=== PATIENT | male | born 1950 | race Caucasian/White ===

== ENCOUNTER → 2019-08-23 | Outpatient (CLI) | payer MEDICARE, BC ==
--- NOTE | 2019-08-23 16:26 | XR ---
EXAMINATION TYPE: XR chest 2V DATE OF EXAM: 08/23/2019 COMPARISON: 05/30/2013 INDICATION: R05 TECHNIQUE: Frontal and lateral views of the chest are obtained. FINDINGS: The heart size is normal. The pulmonary vasculature is normal. The lungs are clear. IMPRESSION: 1. No acute pulmonary process.
== END | disposition home or self-care (01) ==
LOC: RADXRMAIN 14:02
PROVIDERS: ATTEND Family Medicine
DX: R07.9 Chest pain, unspecified (principal); R05 Cough
CPT/HCPCS: 71046

== ENCOUNTER 2019-08-31 14:12 | Observation (INO) | payer MEDICARE, BC ==
[2019-08-31 14:21] VITALS: RESP 16
[2019-08-31] MEDS ORDERED: ASPIRIN 81 MG PO STA (14:31)
[2019-08-31 14:44] LABS: Basophils # (A) 0.1 k/uL (0-0.2); Basophils % (A) 1 %; Eosinophils # (A) 0.2 k/uL (0-0.7); Eosinophils % (A) 2 %; HCT 47.1 % (39.0-53.0); HGB 15.6 gm/dL (13.0-17.5); Lymphocytes # (A) 2.1 k/uL (1.0-4.8); Lymphocytes % (A) 17 %; MCH 32.1 pg (25.0-35.0); MCV 97.3 fL (80.0-100.0); Mean Platelet Volume 7.3; Monocytes # (A) 0.7 k/uL (0-1.0); Monocytes % (A) 5 %; Neutrophils % (A) 73 %; Platelet Count 283 k/uL (150-450); RBC 4.84 m/uL (4.30-5.90); RDW 13.4 % (11.5-15.5); WBC 12.2 k/uL (3.8-10.6)
[2019-08-31] MEDS ORDERED: DILTIAZEM DRIP BOLUS FROM BAG 1 MG SOLN IV ONE (14:44)
[2019-08-31 14:52] LABS: Albumin 3.6 g/dL (3.5-5.0); Calcium 9.3 mg/dL (8.4-10.2); Potassium 4.7 mmol/L (3.5-5.1); Total Bilirubin 0.4 mg/dL (0.2-1.3); Total Protein 6.4 g/dL (6.3-8.2)
[2019-08-31 14:59] LABS: INR 0.9 (<1.2); Partial Thromboplastin Time 22.1 sec (22.0-30.0); Prothrombin Time 10.2 sec (9.0-12.0)
[2019-08-31] MEDS ORDERED: DILTIAZEM 125 MG in SODIUM CHLORIDE 0.9% 100 ML IV SCH (15:00)
--- NOTE | 2019-08-31 15:41 | XR ---
EXAMINATION TYPE: XR chest 2V DATE OF EXAM: 08/31/2019 COMPARISON: 08/23/2019 HISTORY: Chest pain TECHNIQUE: Frontal and lateral views of the chest are obtained. FINDINGS: There is no focal air space opacity, pleural effusion, or pneumothorax seen. Flattening of the diaphragms and pulmonary hyperinflation relates underlying COPD. Post CABG changes of the chest are noted. The cardiac silhouette size is within normal limits. The osseous structures are intact. Mild degenerative changes of the spine are seen. IMPRESSION: No acute cardiopulmonary process.
--- NOTE | 2019-08-31 15:55 | ED ---
Chest Pain HPI - General Chief Complaint: Chest Pain Stated Complaint: chest pain Time Seen by Provider: 08/31/19 14:18 Source: patient, EMS, RN notes reviewed Mode of arrival: EMS Limitations: no limitations - History of Present Illness Initial Comments: 69-year-old female presents emergency Department with chief complaint of chest pain, dizziness, weakness feeling. Patient states that this child do some activities today and states it does not feel right. Patient states he checked his pulse and noticed that it felt abnormal. Patient states that he did have a history of A. fib only after his triple bypass. Patient states this was 10 years ago. Patient has had some stress test recently but no recent cardiac cath. Patient states he feels slightly short of breath. Denies any nausea vomiting. Patient doesn't that his been recently placed on Medrol Dosepak. Patient states she's had slight URI symptoms. - Related Data Home Medications Medication Instructions Recorded Confirmed Atenolol [Tenormin] 25 mg PO DAILY 10/17/14 08/31/19 Omeprazole [PriLOSEC] 20 mg PO BID PRN 10/17/14 08/31/19 Simvastatin [Zocor] 40 mg PO DAILY 10/17/14 08/31/19 Ascorbic Acid [Vitamin C] 1,000 mg PO DAILY 08/31/19 08/31/19 Loratadine [Claritin] 10 mg PO DAILY 08/31/19 08/31/19 Multivitamins, Thera [Multivitamin 1 tab PO DAILY 08/31/19 08/31/19 (formulary)] Phenylephrine/Dm/Acetaminop/GG 30 ml PO Q4H PRN 08/31/19 08/31/19 [Vicks Dayquil Severe Cold-Flu] Phytonadione [Vitamin K] 5 mg PO DAILY 08/31/19 08/31/19 Thiamine [Vitamin B-1] 100 mg PO DAILY 08/31/19 08/31/19 methylPREDNISolone [Medrol Dose See Taper PO DAILY 08/31/19 08/31/19 Pack] Allergies Allergy/AdvReac Type Severity Reaction Status Date / Time No Known Allergies Allergy Verified 08/31/19 14:40 Review of Systems ROS Statement: Those systems with pertinent positive or pertinent negative responses have been documented in the HPI. ROS Other: All systems not noted in ROS Statement are negative. EKG Findings - EKG Comments: EKG Findings:: EKG performed at 14:24 A. fib with RVR rate of 118 QRS 96 QT/QTC 378/391 - EKG Results: EKG: interpreted by RAEANN Past Medical History Past Medical History: Coronary Artery Disease (CAD), Hyperlipidemia, Hypertension History of Any Multi-Drug Resistant Organisms: None Reported Past Surgical History: Heart Catheterization With Stent, Hernia Repair, Orthopedic Surgery Past Psychological History: No Psychological Hx Reported Smoking Status: Current every day smoker Past Alcohol Use History: Daily Past Drug Use History: None Reported General Exam Limitations: no limitations General appearance: alert, in no apparent distress Head exam: Present: atraumatic, normocephalic, normal inspection Neck exam: Present: normal inspection. Absent: tenderness, meningismus, ly mphadenopathy Respiratory exam: Present: normal lung sounds bilaterally. Absent: respiratory distress, wheezes, rales, rhonchi, stridor Cardiovascular Exam: Present: tachycardia, normal heart sounds. Absent: regular rate, normal rhythm, irregular rhythm, systolic murmur, diastolic murmur, rubs, gallop, clicks GI/Abdominal exam: Present: soft, normal bowel sounds. 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 Patient's A. fib RVR. Patient was given Cardizem bolus injured right. Patient has responded well. Patient remains in A. fib will be anticoagulated. Patient be admitted for cardiology evaluation. Critical Care Time Critical Care Time: Yes Total Critical Care Time: 35 Critical Care Time: Total 35 minutes of critical care time were used initially evaluated patient, discussed past medical history, review vitals, prior visits and discuss case with EMS. Patient had labs EKG chest x-ray ordered patient is in A. fib RVR placed on also 5 Cardizem drip 5. Patient is swallowing well with decrease in h is heart rate. Patient is asymptomatic. Patient will be admitted for cardiology evaluation. Disposition Clinical Impression: Atrial fibrillation with RVR Disposition: ADMITTED IP TO THIS HOSP Condition: Fair Referrals: Duong Sinha MD [Primary Care Provider] - 1-2 days
[2019-08-31] MEDS ORDERED: SODIUM CHLORIDE 0.9% 1,000 ML IV ONE ×2 (16:54→23:16)
[2019-08-31] MEDS ORDERED: HEPARIN SODIUM,PORCINE 5,000 UNIT/ML 1 ML VIAL IV ONE (16:58)
[2019-08-31] MEDS ORDERED: NITROGLYCERIN SL TABS 0.4 MG TAB SUBLINGUAL PRN (16:58)
[2019-08-31] MEDS ORDERED: HEPARIN SOD,PORK IN 0.45% NACL 25,000 UNIT in 0.45% NACL 1 250ML.BAG IV SCH (17:00)
[2019-08-31] MEDS ORDERED: PANTOPRAZOLE 40 MG TABLET PO PRN (20:07)
[2019-08-31] MEDS: ATORVASTATIN 20 MG TAB PO SCH (21:05)
[2019-08-31] MEDS: DEXTROSE 5%-0.45% NACL 1,000 ML IV SCH (21:05)
[2019-09-01 06:23] LABS: Mean Platelet Volume 6.9; Platelet Count 227 k/uL (150-450)
[2019-09-01 07:05] LABS: Cholesterol 110 mg/dL (<200); HDL Cholesterol 40 mg/dL (40-60); LDL Cholesterol,Calculated 60 mg/dL (0-99); Triglycerides 52 mg/dL (<150)
--- NOTE | 2019-09-01 07:34 | P.HPIM ---
History of Present Illness H&P Date: 09/01/19 Chief Complaint: Chest pain This is a history and physical an 69-year-old white male with known history of CAD. With recurrent atrial fibrillation with rapid ventricular response. The patient has now reverted. The patient supposedly had history of A. fib after stent repair about 10 years ago but has had no recurrence since. The patient states she was doing normal activities daily living and had new onset which did not resolve until he came to the hospital yesterday. The patient now is resting comfortably without any shortness of breath pain. No significant nausea, vomiting or diarrhea. No element of diaphoresis. There is element of bundle- branch block with bradycardia. Review of Systems Constitutional: Denies chills, Denies fever Eyes: denies blurred vision, denies pain Ears, nose, mouth and throat: Denies headache, Denies sore throat Cardiovascular: Reports chest pain, Reports decreased exercise tolerance, Reports palpitations Respiratory: Denies cough Gastrointestinal: Denies abdominal pain, Denies diarrhea, Denies nausea, Denies vomiting Musculoskeletal: Denies myalgias Past Medical History Past Medical History: Coronary Artery Disease (CAD), Hyperlipidemia, Hypertension History of Any Multi-Drug Resistant Organisms: None Reported Past Surgical History: Heart Catheterization With Stent, Hernia Repair, Orthopedic Surgery Past Anesthesia/Blood Transfusion Reactions: No Reported Reaction Date of Last Stent Placement:: 2007 Past Psychological History: No Psychological Hx Reported Smoking Status: Current every day smoker Past Alcohol Use History: Daily Past Drug Use History: None Reported - Past Family History Mother Family Medical History: Dementia, GI Bleed Father Family Medical History: Cancer Additional Family Medical History / Comment(s): colon cancer Medications and Allergies Home Medications Medication Instructions Recorded Confirmed Type Atenolol [Tenormin] 25 mg PO DAILY 10/17/14 08/31/19 History Omeprazole [PriLOSEC] 20 mg PO BID PRN 10/17/14 08/31/19 History Simvastatin [Zocor] 40 mg PO DAILY 10/17/14 08/31/19 History Ascorbic Acid [Vitamin C] 1,000 mg PO DAILY 08/31/19 08/31/19 History Loratadine [Claritin] 10 mg PO DAILY 08/31/19 08/31/19 History Multivitamins, Thera [Multivitamin 1 tab PO DAILY 08/31/19 08/31/19 History (formulary)] Phenylephrine/Dm/Acetaminop/GG 30 ml PO Q4H PRN 08/31/19 08/31/19 History [Vicks Dayquil Severe Cold-Flu] Phytonadione [Vitamin K] 5 mg PO DAILY 08/31/19 08/31/19 History Thiamine [Vitamin B-1] 100 mg PO DAILY 08/31/19 08/31/19 History methylPREDNISolone [Medrol Dose See Taper PO DAILY 08/31/19 08/31/19 History Pack] Allergies Allergy/AdvReac Type Severity Reaction Status Date / Time No Known Allergies Allergy Verified 08/31/19 14:40 Physical Exam Vitals: Vital Signs Temp Pulse Pulse Pulse Resp BP BP 09/01/19 03:27 65 16 09/01/19 00:17 84/54 08/31/19 22:54 97.6 F 84 16 84/53 08/31/19 21:36 08/31/19 20:00 08/31/19 19:58 97.6 F 62 16 08/31/19 18:22 98.3 F 77 16 08/31/19 18:10 98.3 F 77 16 08/31/19 17:37 79 16 95/67 08/31/19 16:23 82 16 87/65 08/31/19 14:21 90 08/31/19 14:17 98.6 F 92 16 101/75 BP Pulse Ox 09/01/19 03:27 95/52 97 09/01/19 00:17 86/54 08/31/19 22:54 76/50 96 08/31/19 21:36 96 08/31/19 20:00 97 08/31/19 19:58 92/52 97 08/31/19 18:22 138/67 95 08/31/19 18:10 138/67 95 08/31/19 17:37 97 08/31/19 16:23 95 08/31/19 14:21 08/31/19 14:17 96 Intake and Output 08/31/19 09/01/19 09/01/19 22:59 06:59 14:59 Intake Total 29.500 132.741 Balance 29.500 132.741 Intake: Intake, IV Titration 29.500 132.741 Amount Diltiazem 125 mg In 29.500 Sodium Chloride 0.9% 100 ml @ 5 MG/HR 5 mls/hr IV .Q24H [facility] Rx#:[id number] Heparin Sod,Pork in 0.45% 132.741 NaCl 25,000 unit In 0.45 % NaCl 1 250ml.bag @ 12 UNITS/KG/HR 9.906 mls/hr IV .Q24H [facility] Rx#: [id number] Other: # Voids 1 Weight 85.6 kg - Constitutional General appearance: no acute distress - EENT Eyes: EOMI - Neck Neck: no lymphadenopathy - Respiratory Respiratory: bilateral: CTA - Cardiovascular Rhythm: regular Heart sounds: normal: S1, S2 Abnormal Heart Sounds: no S3 Gallop - Gastrointestinal General gastrointestinal: soft, no tenderness - Neurologic Neurologic: CNII-XII intact - Musculoskeletal Musculoskeletal: no generalized weakness - Psychiatric Psychiatric: A&O x's 3 Results CBC & Chem 7: 09/01/19 06:03 08/31/19 14:20 Labs: Abnormal Lab Results - Last 24 Hours (Table) 08/31/19 08/31/19 08/31/19 Range/Units 14:20 14:20 23:02 WBC 12.2 H (3.8-10.6) k/uL Neutrophils # 9.0 H (1.3-7.7) k/uL APTT 58.0 H (22.0-30.0) sec Chloride 110 H (98-107) mmol/L Carbon Dioxide 21 L (22-30) mmol/L BUN 29 H (9-20) mg/dL Creatinine 1.34 H (0.66-1.25) mg/dL Glucose 125 H (74-99) mg/dL 09/01/19 Range/Units 06:03 WBC (3.8-10.6) k/uL Neutrophils # (1.3-7.7) k/uL APTT 67.6 H (22.0-30.0) sec Chloride (98-107) mmol/L Carbon Dioxide (22-30) mmol/L BUN (9-20) mg/dL Creatinine (0.66-1.25) mg/dL Glucose (74-99) mg/dL Thrombosis Risk Factor Assmnt - Choose All That Apply Each Risk Factor Represents 2 Points: Age 61-74 years Thrombosis Risk Factor Assessment Total Risk Factor Score: 2 Thrombosis Risk Factor Assessment Level: Low Risk Assessment and Plan Assessment: Watch vital signs closely. Echocardiogram to be done if not done in the last 6 months. Thyroid studies again if not done. Await cardiology input for possible medication titration with anticoagulation decision. See orders otherwise Time with Patient: Greater than 30
[2019-09-01 08:13] VITALS: PULSE 72
[2019-09-01] MEDS ORDERED: LORATADINE 10 MG TAB PO SCH (09:00)
[2019-09-01] MEDS ORDERED: ASPIRIN 81 MG PO SCH (09:00)
[2019-09-01] MEDS ORDERED: ATENOLOL 25 MG TAB PO SCH (09:00)
[2019-09-01] MEDS ORDERED: ASPIRIN 325 MG TAB PO SCH (09:00)
[2019-09-01] MEDS ORDERED: APIXABAN 5 MG TAB PO SCH (09:00)
[2019-09-01] MEDS ORDERED: METOPROLOL TARTRATE 25 MG TAB PO SCH (09:00)
[2019-09-01] MEDS ORDERED: AZITHROMYCIN 500 MG TAB PO SCH (09:00)
[2019-09-01] MEDS: ATORVASTATIN 20 MG TAB PO SCH (09:10)
[2019-09-01 12:16] VITALS: BP 130/75; TEMP 97.8
--- NOTE | 2019-09-01 12:37 | ECHOF ---
Referral Reason:afib, chest pain MEASUREMENTS -------- HEIGHT: 182.9 cm WEIGHT: 85.3 kg BP: 95/52 IVSd: 1.4 cm (0.6 - 1.1) LVIDd: 3.2 cm (3.9 - 5.3) LVPWd: 1.5 cm (0.6 - 1.1) IVSs: 2.0 cm LVIDs: 2.0 cm LVPWs: 2.1 cm LAESV Index (A-L): 17.86 ml/m Ao Diam: 3.1 cm (2.0 - 3.7) AV Cusp: 2.0 cm (1.5 - 2.6) LA Diam: 3.5 cm (2.7 - 3.8) MV EXCURSION: 14.577 mm (> 18.000) MV EF SLOPE: 52 mm/s (70 - 150) EPSS: 0.5 cm MV E Teddy: 0.54 m/s MV DecT: 200 ms MV A Teddy: 0.71 m/s MV E/A Ratio: 0.76 RAP: 5.00 mmHg RVSP: 20.33 mmHg TAPSE: 22.21 mm FINDINGS -------- Sinus rhythm. This was a technically good study. The left ventricular size is normal. There is moderate concentric left ventricular hypertrophy. O verall left ventricular systolic function is normal with, an EF between 55 - 60 %. The diastolic fi lling pattern is normal for the age of the patient 7.41. The right ventricle is normal in size. The right ventricular wall thickness is normal measuring < 5 mm. The left atrial size is normal. Normal LA size by volume 22+/-6 ml/m2. The right atrial size is normal. Interatrial and interventricular septum intact. Aortic valve is trileaflet and is mildly thickened. The mitral valve is normal. The mitral valve leaflets are mildly thickened. Mild mitral regurgita tion is present. The tricuspid valve appears structurally normal. Mild tricuspid regurgitation present. Right vent ricular systolic pressure is normal at < 35 mmHg. There is no pulmonic regurgitation present. The aortic root size is normal. Normal inferior vena cava with normal inspiratory collapse consistent with estimated right atrial pre ssure of 5 mmHg. All pulmonary veins appear normal. The flow patterns, measured by Doppler, appear normal. There is no pericardial effusion. CONCLUSIONS -------- 1. Sinus rhythm. 2. This was a technically good study. 3. The left ventricular size is normal. 4. There is moderate concentric left ventricular hypertrophy. 5. Overall left ventricular systolic function is normal with, an EF between 55 - 60 %. 6. The diastolic filling pattern is normal for the age of the patient 7.41 7. The right ventricle is normal in size. 8. The right ventricular wall thickness is normal measuring < 5mm. 9. The left atrial size is normal. 10. Normal LA size by volume 22+/-6 ml/m2. 11. The right atrial size is normal. 12. Interatrial and interventricular septum intact. 13. Aortic valve is trileaflet and is mildly thickened. 14. The mitral valve is normal. 15. The mitral valve leaflets are mildly thickened. 16. Mild mitral regurgitation is present. 17. The tricuspid valve appears structurally normal. 18. Mild tricuspid regurgitation present. 19. Right ventricular systolic pressure is normal at < 35 mmHg. 20. There is no pulmonic regurgitation present. 21. The aortic root size is normal. 22. Normal inferior vena cava with normal inspiratory collapse consistent with estimated right atrial pressure of 5 mmHg. 23. All pulmonary veins appear normal. 24. The flow patterns, measured by Doppler, appear normal. 25. There is no pericardial effusion. SPOUT TENDER: Gabbi Gerard RDCS
--- NOTE | 2019-09-01 13:07 | CONS ---
CONSULTATION This is a 69-year-old gentleman with a known history of CAD, hypertension, hyperlipidemia, alcoholism and smoking. This gentleman underwent aortocoronary bypass surgery and also prior to that PCI. He has been having an upper respiratory tract infection and complained of some wheezy feeling and he went and took some DayQuil tablets and syrup which has phenylephrine in it. However, he started having episodes of what he described as a rapid heartbeat, but no actual syncope, but he did feel a bit lightheaded. He also had some shortness of breath, felt his pulse was abnormal and came into the hospital. He was found to be in atrial fibrillation. He did have a brief episode following his bypass surgery more than 8 to 9 years ago. However after initiation of Cardizem, he converted to sinus rhythm. He is feeling well. He had a recent stress test within the last one year that was negative. I see this patient in the office regularly. He is therefore back in sinus rhythm, resting comfortably, denies any chest pain. Interestingly, he takes atenolol and simvastatin, but he has also been taking vitamin K for reasons that are quite unclear to me. I have advised the patient to not take any supplements, specifically vitamin K or vitamin E and I have suggested that he should take metoprolol tartrate 25 mg in the morning, 12.5 mg in the evening, I gave him Eliquis 5 mg [address] and will place him on Lipitor 20 mg daily. He is in sinus rhythm. I have advised him to avoid phenylephrine containing products because of the stimulation. Given his risk factors and age, I am recommending he should be on anticoagulation. At the time of my evaluation, he is asymptomatic and feels well. PAST MEDICAL HISTORY: 1. CAD with prior PCI and bypass surgery more than 8 to 9 years ago. 2. Hypertension. 3. Hyperlipidemia. The patient is a smoker, 1 to 2 packs a day and also drinks alcohol regularly including binge drinking. He is status post some orthopedic surgery and hernia surgery. ALLERGIES: None. MEDICATIONS: Medications include vitamin K 5 mg daily, DayQuil, vitamin B1, Medrol Dosepak given by his doctor for wheezing, Tenormin 25 mg daily, simvastatin 40 mg daily, vitamin C and Claritin. PHYSICAL EXAMINATION: On examination, blood pressure is 130/70, pulse rate is 60 per minute, regular. HEENT: Unremarkable. Fundus was not examined by me. Neck is supple. No JVD. I do not hear a carotid bruit. Heart exam reveals S1, S2 with a short systolic murmur. Lungs reveal bilateral scattered rhonchi. Abdomen is soft, nontender. Lower extremities reveal normal pulses. No edema. Central nervous system is normal. EKG revealed atrial fib with moderate ventricular rate, nonspecific ST-T changes. IMPRESSION: 1. Paroxysmal atrial fibrillation. 2. Upper respiratory tract infection. 3. Coronary artery disease with prior bypass surgery. 4. Hypertension. 5. Hyperlipidemia. RECOMMENDATION: I am recommending alcohol cessation and to quit smoking. I will initiate him on Lopressor 25 mg in the morning, 12.5 mg in the evening, discontinue atenolol, Lipitor 20 mg daily. He is advised he will be on Eliquis 5 mg b.i.d. Chest x-ray does not reveal any infiltrate. He probably has a bronchitis. We will therefore try Zithromax 500 mg daily. Patient can be discharged later on today. Thank you very much for the consult. MMODL / IJN: [id number] /
--- NOTE | 2019-09-01 15:07 | P.DS ---
Providers Date of admission: 08/31/19 17:17 Attending physician: Duong Sinha Consults: 08/31/19 16:58 Consult Physician Urgent Consulting Provider: Robert Mcmanus Consult Reason/Comments: AFIB RVR Do you want consulting provider notified?: Yes Primary care physician: Duong Sinha Hospital Course: This is discharge home in a 69-year-old white male Center admitted for recurrent atrial fibrillation. The patient stabilized after being given Cardizem. Evaluation by the magnetic locater has been done. The patient will go home on metoprolol 25 g daily with Eliquis and baby aspirin. The patient is not tolerating medication blood pressure was a little bit low during this hospitalization but is now been stabilized with IV fluid. The patient is chest pain-free tolerating diet and voiding without difficulty. The patient will follow up with me in about 1 week. Patient Condition at Discharge: Fair Plan - Discharge Summary Discharge Rx Participant: No New Discharge Prescriptions: New Aspirin 81 mg PO DAILY chew Apixaban [Eliquis] 5 mg PO BID #30 tab Metoprolol Tartrate [Lopressor] 25 mg PO DAILY #30 tab Nitroglycerin Sl Tabs [Nitrostat] 0.4 mg SUBLINGUAL Q5M PRN #50 tab PRN Reason: Chest Pain Azithromycin [Zithromax] 500 mg PO DAILY #3 tab Continue Omeprazole [PriLOSEC] 20 mg PO BID PRN PRN Reason: GERD Simvastatin [Zocor] 40 mg PO DAILY Atenolol [Tenormin] 25 mg PO DAILY Thiamine [Vitamin B-1] 100 mg PO DAILY Phytonadione [Vitamin K] 5 mg PO DAILY Multivitamins, Thera [Multivitamin (formulary)] 1 tab PO DAILY Loratadine [Claritin] 10 mg PO DAILY Ascorbic Acid [Vitamin C] 1,000 mg PO DAILY methylPREDNISolone [Medrol Dose Pack] See Taper PO DAILY Phenylephrine/Dm/Acetaminop/GG [Vicks Dayquil Severe Cold-Flu] 30 ml PO Q4H PRN PRN Reason: Pain Or Fever > 100.5 Discharge Medication List Atenolol [Tenormin] 25 mg PO DAILY 10/17/14 [History] Omeprazole [PriLOSEC] 20 mg PO BID PRN 10/17/14 [History] Simvastatin [Zocor] 40 mg PO DAILY 11/25/14 [History] Ascorbic Acid [Vitamin C] 1,000 mg PO DAILY 08/31/19 [History] Loratadine [Claritin] 10 mg PO DAILY 08/31/19 [History] Multivitamins, Thera [Multivitamin (formulary)] 1 tab PO DAILY 08/31/19 [History] Phenylephrine/Dm/Acetaminop/GG [Vicks Dayquil Severe Cold-Flu] 30 ml PO Q4H PRN 08/31/19 [History] Phytonadione [Vitamin K] 5 mg PO DAILY 08/31/19 [History] Thiamine [Vitamin B-1] 100 mg PO DAILY 08/31/19 [History] methylPREDNISolone [Medrol Dose Pack] See Taper PO DAILY 08/31/19 [History] Apixaban [Eliquis] 5 mg PO BID #30 tab 09/01/19 [Rx] Aspirin 81 mg PO DAILY chew 09/01/19 [Rx] Azithromycin [Zithromax] 500 mg PO DAILY #3 tab 09/01/19 [Rx] Metoprolol Tartrate [Lopressor] 25 mg PO DAILY #30 tab 09/01/19 [Rx] Nitroglycerin Sl Tabs [Nitrostat] 0.4 mg SUBLINGUAL Q5M PRN #50 tab 09/01/19 [Rx] Follow up Appointment(s)/Referral(s): Duong Sinha MD [Primary Care Provider] - 09/06/19 11:00 am (Thursday) Activity/Diet/Wound Care/Special Instructions: Pts 30 day copay for Eliquis is $40. script for 3 month supply is in [facility] Discharge Disposition: HOME SELF-CARE
[2019-09-01] MEDS: DEXTROSE 5%-0.45% NACL 1,000 ML IV SCH (15:32)
[2019-09-01] MEDS ORDERED: METOPROLOL TARTRATE 12.5 MG TAB PO SCH (21:00)
== END 2019-09-01 16:11 | disposition home or self-care (01) ==
LOC: EC 14:12 → 3SCARD 17:17
PROVIDERS: ADMIT Family Medicine; ATTEND Family Medicine
DX: I48.0 Paroxysmal atrial fibrillation (principal); I25.10 Atherosclerotic heart disease of native coronary artery without angina pectoris; J06.9 Acute upper respiratory infection, unspecified; I45.4 Nonspecific intraventricular block; R00.1 Bradycardia, unspecified; E78.5 Hyperlipidemia, unspecified; I10 Essential (primary) hypertension; F17.210 Nicotine dependence, cigarettes, uncomplicated; F10.21 Alcohol dependence, in remission; Z79.899 Other long term (current) drug therapy; Z79.52 Long term (current) use of systemic steroids; Z95.5 Presence of coronary angioplasty implant and graft; Z95.1 Presence of aortocoronary bypass graft; Z80.0 Family history of malignant neoplasm of digestive organs; Z81.8 Family history of other mental and behavioral disorders; Z83.79 Family history of other diseases of the digestive system
CPT/HCPCS: 96366 ×3; 93005 ×2; 96376; 96368; 96365; 99291; 36415; 93306; 83880; 80061; 80053; 84443; 83690; 83735; 84484 ×2; 85025; 85049; 85610; 85730 ×2; 71046; G0378 ×2; J1644 ×2

== ENCOUNTER 2019-11-23 08:39 | Emergency (ER) | payer MEDICARE, BC, OTHER ==
[2019-11-23 08:43] VITALS: RESP 18
--- NOTE | 2019-11-23 09:18 | ED ---
Arrhythmia/Palpitations HPI - General Chief Complaint: Arrhythmia/Palpitations Stated Complaint: a-fIB Time Seen by Provider: 11/23/19 08:51 Source: patient, RN notes reviewed, old records reviewed Mode of arrival: ambulatory Limitations: no limitations - History of Present Illness Initial Comments: This is a 69-year-old male here for evaluation of rapid heart rate lightheadedness and dizziness. No significant chest pain history of atrial fibrillation history of cardiac bypass. Patient states first time in its A. fib was when he has bypass surgery and recently a few months ago. Patient currently does take blood thinners he is on Alquist, patient also takes metoprolol for his heart rate. No recent nausea vomiting diarrhea illness medication. Patient's history of alcohol abuse. At this time patient states his symptoms resolved he feels normal feels good MD Complaint: rapid heart beat, "heart racing", "skipped beats", palpitations, irregular heart beat, atrial fibrillation -: days(s) Context: occurred during rest Arrhythmia History: atrial fibrillation Associated Symptoms: anxiety - Related Data Home Medications Medication Instructions Recorded Confirmed Omeprazole [PriLOSEC] 20 mg PO BID PRN 10/17/14 08/31/19 Simvastatin [Zocor] 40 mg PO DAILY 10/17/14 08/31/19 Ascorbic Acid [Vitamin C] 1,000 mg PO DAILY 08/31/19 08/31/19 Loratadine [Claritin] 10 mg PO DAILY 08/31/19 08/31/19 Multivitamins, Thera [Multivitamin 1 tab PO DAILY 08/31/19 08/31/19 (formulary)] Phenylephrine/Dm/Acetaminop/GG 30 ml PO Q4H PRN 08/31/19 08/31/19 [Vicks Dayquil Severe Cold-Flu] Phytonadione [Vitamin K] 5 mg PO DAILY 08/31/19 08/31/19 Thiamine [Vitamin B-1] 100 mg PO DAILY 08/31/19 08/31/19 methylPREDNISolone [Medrol Dose See Taper PO DAILY 08/31/19 08/31/19 Pack] Previous Rx's Medication Instructions Recorded Apixaban [Eliquis] 5 mg PO BID #30 tab 09/01/19 Aspirin 81 mg PO DAILY chew 09/01/19 Azithromycin [Zithromax] 500 mg PO DAILY #3 tab 09/01/19 Metoprolol Tartrate [Lopressor] 25 mg PO DAILY #30 tab 09/01/19 Nitroglycerin Sl Tabs [Nitrostat] 0.4 mg SUBLINGUAL Q5M PRN #50 tab 09/01/19 Allergies Allergy/AdvReac Type Severity Reaction Status Date / Time No Known Allergies Allergy Verified 11/23/19 08:43 Review of Systems ROS Statement: Those systems with pertinent positive or pertinent negative responses have been documented in the HPI. ROS Other: All systems not noted in ROS Statement are negative. Past Medical History Past Medical History: Atrial Fibrillation, Coronary Artery Disease (CAD), Hyperlipidemia, Hypertension History of Any Multi-Drug Resistant Organisms: None Reported Past Surgical History: Heart Catheterization With Stent, Hernia Repair, Orthopedic Surgery Past Anesthesia/Blood Transfusion Reactions: No Reported Reaction Date of Last Stent Placement:: 2007 Past Psychological History: No Psychological Hx Reported Smoking Status: Current every day smoker Past Alcohol Use History: Daily Past Drug Use History: None Reported - Past Family History Mother Family Medical History: Dementia, GI Bleed Father Family Medical History: Cancer Additional Family Medical History / Comment(s): colon cancer General Exam Limitations: no limitations General appearance: alert, in no apparent distress Head exam: Present: atraumatic, normocephalic, normal inspection Eye exam: Present: normal appearance, PERRL, EOMI. Absent: scleral icterus, conjunctival injection, periorbital swelling ENT exam: Present: normal exam, mucous membranes moist Neck exam: Present: normal inspection. Absent: tenderness, meningismus, lymphadenopathy Respiratory exam: Present: normal lung sounds bilaterally. Absent: respiratory distress, wheezes, rales, rhonchi, stridor Cardiovascular Exam: Present: regular rate, normal rhythm, normal heart sounds. Absent: systolic murmur, diastolic murmur, rubs, gallop, clicks GI/Abdominal exam: Present: soft, normal bowel sounds. Absent: distended, tenderness, guarding, rebound, rigid Extremities exam: Present: normal inspection, full ROM, normal capillary refill. Absent: tenderness, pedal edema, joint swelling, calf tenderness Back exam: Present: normal inspection Neurological exam: Present: alert, oriented X3, CN II-XII intact Psychiatric exam: Present: normal affect, normal mood Skin exam: Present: warm, dry, intact, normal color. 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 Patient states symptomatic here in the ER and will be discharged home Disposition Clinical Impression: Atrial fibrillation, Palpitations Disposition: HOME SELF-CARE Condition: Good Instructions (If sedation given, give patient instructions): Heart Palpitations (ED) Is patient prescribed a controlled substance at d/c from ED?: No Referrals: Duong Sinha MD [Primary Care Provider] - 1-2 days
[2019-11-23 09:38] LABS: Basophils % (A) 0 %; Eosinophils # (A) 0.2 k/uL (0-0.7); Eosinophils % (A) 2 %; HCT 44.7 % (39.0-53.0); HGB 14.6 gm/dL (13.0-17.5); Lymphocytes # (A) 1.4 k/uL (1.0-4.8); Lymphocytes % (A) 18 %; MCH 31.3 pg (25.0-35.0); MCHC 32.5 g/dL (31.0-37.0); MCV 96.2 fL (80.0-100.0); Mean Platelet Volume 9.2; Monocytes # (A) 0.5 k/uL (0-1.0); Monocytes % (A) 7 %; Neutrophils # (A) 5.6 k/uL (1.3-7.7); Neutrophils % (A) 71 %; Platelet Count 220 k/uL (150-450); RBC 4.65 m/uL (4.30-5.90); RDW 13.1 % (11.5-15.5); WBC 7.8 k/uL (3.8-10.6)
[2019-11-23 09:49] LABS: Albumin 3.8 g/dL (3.5-5.0); Calcium 9.4 mg/dL (8.4-10.2); Potassium 4.3 mmol/L (3.5-5.1); Total Bilirubin 0.5 mg/dL (0.2-1.3); Total Protein 6.7 g/dL (6.3-8.2)
[2019-11-23 11:02] VITALS: BP 121/86; PULSE 69; TEMP 98.2
== END 2019-11-23 10:58 | disposition home or self-care (01) ==
LOC: EC 08:39
DX: I48.91 Unspecified atrial fibrillation (principal); E78.5 Hyperlipidemia, unspecified; I10 Essential (primary) hypertension; I25.10 Atherosclerotic heart disease of native coronary artery without angina pectoris; F17.200 Nicotine dependence, unspecified, uncomplicated; Z79.899 Other long term (current) drug therapy; Z95.5 Presence of coronary angioplasty implant and graft
CPT/HCPCS: 36415; 80053; 83735; 84443; 84484; 85025; 93005; 99285

== ENCOUNTER → 2021-10-08 | Outpatient (CLI) | payer BC, MEDICARE, OTHER | END | disposition home or self-care (01) | LOC: LABWHC1 12:04 | PROVIDERS: ATTEND Family Medicine | DX: Z20.822 Contact with and (suspected) exposure to COVID-19 (principal); Z11.59 Encounter for screening for other viral diseases | CPT/HCPCS: U0003; C9803 ==

== ENCOUNTER 2022-02-21 20:15 | Emergency (ER) | payer MEDICARE ==
[2022-02-21 20:37] VITALS: RESP 16
[2022-02-21] MEDS ORDERED: METOPROLOL TARTRATE 5 MG/5 ML VIAL IVP STA (21:14)
--- NOTE | 2022-02-21 21:14 | ED ---
General Adult HPI - General Chief complaint: Arrhythmia/Palpitations Stated complaint: Palpitations,Jaw Pain Time Seen by Provider: 02/21/22 20:50 Source: patient Mode of arrival: wheelchair - History of Present Illness Initial comments: Dictation was produced using [employer] dictation software. please excuse any grammatical, word or spelling errors. Chief Complaint: 71-year-old male presents to the emergency department for palpitations History of Present Illness: 71-year-old male with past medical history atrial fibrillation as diagnosed in 2012. He is on anti-coagulation medications and beta blockers. Patient states she's been compliant with his medications. He has not had any changes habits recently. At around 7 PM he was having a Pepsi float when all of a sudden long-term through his dessert he started to feel palpitations. Patient has any chest pain. Since being in the emergency department he feels slightly improved but still has noticeable palpitations. Patient has any shortness of breath. The ROS documented in this emergency department record has been reviewed and confirmed by me. Those systems with pertinent positive or negative responses have been documented in the HPI. All other systems are other negative and/or noncontributory. PHYSICAL EXAM: General Impression: Alert and oriented x3, not in acute distress HEENT: Normocephalic atraumatic, extra-ocular movements intact, pupils equal and reactive to light bilaterally, mucous membranes moist. Cardiovascular: Irregularly irregular Chest: Able to complete full sentences, no retractions, no tachypnea Abdomen: abdomen soft, non-tender, non-distended, no organomegaly Musculoskeletal: Pulses present and equal in all extremities, no peripheral edema Motor: no focal deficits noted Neurological: CN II-XII grossly intact, no focal motor or sensory deficits noted Skin: Intact with no visualized rashes Psych: Normal affect and mood ED course: 71-year-old male presents to the emergency department for chief complaint palpitations that began acutely at 7 PM. He does have a history of A. fib and is on appropriate medications. States she's been compliant. Signs upon arrival are within acceptable limits. Patient's well-appearing at bedside. 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 Clinical presentation consistent with A. fib with RVR. Laboratory evaluation obtained. CBC, coag panel, metabolic panel was within acceptable limits. Troponin is negative. Patient given small 2.5 IV push dose of metoprolol. Patient's medications were reviewed. He takes metoprolol 50 mg in the morning and 25 mg at night. He took his morning dose but did not take his night dose. Patient's heart rate improved to acceptable levels between 80 and 110, with most of his heart rate being maintained in the 90s. Patient reevaluated at bedside at 10:00 PM. Patient ambulated the emergency department tolerated it well. He did become a little tachycardic immediately after the walk however with 1 minute of rest his heart rate went back down to acceptable levels in the 90s. Patient states he's feeling well. He lives nearby and can return to the emergency department for his recurrent symptoms. Patient agreeable discharge. He feels well. he feels improved he is instructed to go home and take his nightly metoprolol oral dose. EKG interpretation: Ventricular rate 131, H fibrillation with rapid ventricular weight, QS 90, QTC 368. No TX prolongation, no QTC prolongation, no ST or T-wave changes noted. - Related Data Home Medications Medication Instructions Recorded Confirmed Omeprazole [PriLOSEC] 20 mg PO BID PRN 10/17/14 02/21/22 Atorvastatin [Lipitor] 40 mg PO HS 02/21/22 02/21/22 Metoprolol Tartrate [Lopressor] 25 mg PO HS 02/21/22 02/21/22 Metoprolol Tartrate [Lopressor] 50 mg PO DAILY 02/21/22 02/21/22 Previous Rx's Medication Instructions Recorded Apixaban [Eliquis] 5 mg PO BID #30 tab 09/01/19 Nitroglycerin Sl Tabs [Nitrostat] 0.4 mg SUBLINGUAL Q5M PRN #50 tab 09/01/19 Allergies Allergy/AdvReac Type Severity Reaction Status Date / Time No Known Allergies Allergy Verified 02/21/22 21:55 Review of Systems ROS Statement: Those systems with pertinent positive or pertinent negative responses have been documented in the HPI. ROS Other: All systems not noted in ROS Statement are negative. Past Medical History Past Medical History: Atrial Fibrillation, Coronary Artery Disease (CAD), Hyperlipidemia, Hypertension History of Any Multi-Drug Resistant Organisms: None Reported Past Surgical History: Heart Catheterization With Stent, Hernia Repair, Orthopedic Surgery Past Anesthesia/Blood Transfusion Reactions: No Reported Reaction Date of Last Stent Placement:: 2007 Past Psychological History: No Psychological Hx Reported Past Alcohol Use History: Daily Past Drug Use History: None Reported - Past Family History Mother Family Medical History: Dementia, GI Bleed Father Family Medical History: Cancer Additional Family Medical History / Comment(s): colon cancer Course Vital Signs 02/21/22 02/21/22 20:34 21:30 Temperature 97.6 F Pulse Rate 87 Pulse Rate [ 117 H Haz Tech ] Respiratory 16 Rate Blood Pressure 102/67 O2 Sat by Pulse 99 Oximetry Medical Decision Making - Lab Data Result diagrams: 02/21/22 20:55 02/21/22 20:55 Lab Results 02/21/22 02/21/22 02/21/22 Range/Units 20:55 20:55 20:55 WBC 9.9 (3.8-10.6) k/uL RBC 5.05 (4.30-5.90) m/uL Hgb 16.4 (13.0-17.5) gm/dL Hct 49.6 (39.0-53.0) % MCV 98.2 (80.0-100.0) fL MCH 32.5 (25.0-35.0) pg MCHC 33.0 (31.0-37.0) g/dL RDW 14.0 (11.5-15.5) % Plt Count 274 (150-450) k/uL MPV 9.5 Neutrophils % 64 % Lymphocytes % 25 % Monocytes % 6 % Eosinophils % 3 % Basophils % 1 % Neutrophils # 6.3 (1.3-7.7) k/uL Lymphocytes # 2.4 (1.0-4.8) k/uL Monocytes # 0.6 (0-1.0) k/uL Eosinophils # 0.3 (0-0.7) k/uL Basophils # 0.1 (0-0.2) k/uL PT 10.1 (9.0-12.0) sec INR 0.9 (<1.2) APTT 25.2 (22.0-30.0) sec Sodium 137 (137-145) mmol/L Potassium 4.1 (3.5-5.1) mmol/L Chloride 108 H (98-107) mmol/L Carbon Dioxide 20 L (22-30) mmol/L Anion Gap 9 mmol/L BUN 22 H (9-20) mg/dL Creatinine 1.28 H (0.66-1.25) mg/dL Est GFR (CKD-EPI)AfAm 65 (>60 ml/min/1.73 sqM) Est GFR (CKD-EPI)NonAf 56 (>60 ml/min/1.73 sqM) Glucose 160 H (74-99) mg/dL Calcium 8.9 (8.4-10.2) mg/dL Magnesium 1.9 (1.6-2.3) mg/dL Total Bilirubin 0.4 (0.2-1.3) mg/dL AST 25 (17-59) U/L ALT 22 (4-49) U/L Alkaline Phosphatase 107 (38-126) U/L Troponin I (0.000-0.034) ng/mL Total Protein 7.0 (6.3-8.2) g/dL Albumin 3.9 (3.5-5.0) g/dL 02/21/22 Range/Units 20:55 WBC (3.8-10.6) k/uL RBC (4.30-5.90) m/uL Hgb (13.0-17.5) gm/dL Hct (39.0-53.0) % MCV (80.0-100.0) fL MCH (25.0-35.0) pg MCHC (31.0-37.0) g/dL RDW (11.5-15.5) % Plt Count (150-450) k/uL MPV Neutrophils % % Lymphocytes % % Monocytes % % Eosinophils % % Basophils % % Neutrophils # (1.3-7.7) k/uL Lymphocytes # (1.0-4.8) k/uL Monocytes # (0-1.0) k/uL Eosinophils # (0-0.7) k/uL Basophils # (0-0.2) k/uL PT (9.0-12.0) sec INR (<1.2) APTT (22.0-30.0) sec Sodium (137-145) mmol/L Potassium (3.5-5.1) mmol/L Chloride (98-107) mmol/L Carbon Dioxide (22-30) mmol/L Anion Gap mmol/L BUN (9-20) mg/dL Creatinine (0.66-1.25) mg/dL Est GFR (CKD-EPI)AfAm (>60 ml/min/1.73 sqM) Est GFR (CKD-EPI)NonAf (>60 ml/min/1.73 sqM) Glucose (74-99) mg/dL Calcium (8.4-10.2) mg/dL Magnesium (1.6-2.3) mg/dL Total Bilirubin (0.2-1.3) mg/dL AST (17-59) U/L ALT (4-49) U/L Alkaline Phosphatase (38-126) U/L Troponin I <0.012 (0.000-0.034) ng/mL Total Protein (6.3-8.2) g/dL Albumin (3.5-5.0) g/dL Disposition Clinical Impression: Atrial fibrillation Disposition: HOME SELF-CARE Condition: Fair Instructions (If sedation given, give patient instructions): Heart Palpitations (ED) Is patient prescribed a controlled substance at d/c from ED?: No Referrals: Duong Sinha MD [Primary Care Provider] - 1-2 days
[2022-02-21 21:20] LABS: Basophils # (A) 0.1 k/uL (0-0.2); Basophils % (A) 1 %; Eosinophils # (A) 0.3 k/uL (0-0.7); Eosinophils % (A) 3 %; HCT 49.6 % (39.0-53.0); HGB 16.4 gm/dL (13.0-17.5); Lymphocytes # (A) 2.4 k/uL (1.0-4.8); Lymphocytes % (A) 25 %; MCH 32.5 pg (25.0-35.0); MCV 98.2 fL (80.0-100.0); Mean Platelet Volume 9.5; Monocytes # (A) 0.6 k/uL (0-1.0); Monocytes % (A) 6 %; Neutrophils # (A) 6.3 k/uL (1.3-7.7); Neutrophils % (A) 64 %; Platelet Count 274 k/uL (150-450); RBC 5.05 m/uL (4.30-5.90); WBC 9.9 k/uL (3.8-10.6)
[2022-02-21 21:21] LABS: Albumin 3.9 g/dL (3.5-5.0); Calcium 8.9 mg/dL (8.4-10.2); Potassium 4.1 mmol/L (3.5-5.1); Total Bilirubin 0.4 mg/dL (0.2-1.3)
[2022-02-21 21:22] LABS: Magnesium 1.9 mg/dL (1.6-2.3)
[2022-02-21 21:27] LABS: INR 0.9 (<1.2); Partial Thromboplastin Time 25.2 sec (22.0-30.0); Prothrombin Time 10.1 sec (9.0-12.0)
[2022-02-21] MEDS ORDERED: SODIUM CHLORIDE 0.9% 1,000 ML IV STA (21:36)
--- NOTE | 2022-02-21 21:56 | XR ---
EXAMINATION TYPE: XR chest 2V DATE OF EXAM: 02/21/2022 COMPARISON: 08/31/2019 HISTORY: Chest pain. Dysrhythmia TECHNIQUE: FINDINGS: Heart is normal. Lungs are clear. Diaphragm is normal. There are chest leads. Bony thorax i s intact. IMPRESSION: No active cardiopulmonary disease. Normal heart. No change.
[2022-02-21 23:16] VITALS: BP 94/70
[2022-02-21 23:18] VITALS: PULSE 102; TEMP 97.9
== END 2022-02-21 23:16 | disposition home or self-care (01) ==
LOC: EC 20:15
DX: I48.91 Unspecified atrial fibrillation (principal); I25.10 Atherosclerotic heart disease of native coronary artery without angina pectoris; E78.5 Hyperlipidemia, unspecified; I10 Essential (primary) hypertension; Z79.01 Long term (current) use of anticoagulants
CPT/HCPCS: 36415; 71046; 80053; 83735; 84484; 85025; 85610; 85730; 93005; 96361; 96374; 99285

== ENCOUNTER 2022-04-13 00:53 | Emergency (ER) | payer MEDICARE ==
[2022-04-13 01:03] VITALS: TEMP 97.6
[2022-04-13] MEDS ORDERED: SODIUM CHLORIDE 0.9% 500 ML 500 ML IV STA (01:13)
--- NOTE | 2022-04-13 01:13 | ED ---
Arrhythmia/Palpitations HPI - General Chief Complaint: Arrhythmia/Palpitations Stated Complaint: AFib Time Seen by Provider: 04/13/22 01:12 Source: patient, RN notes reviewed, old records reviewed Mode of arrival: ambulatory Limitations: no limitations - History of Present Illness Initial Comments: This is a 71-year-old male presents today for evaluation of a fibrillation states he's in atrial fibrillation and feels like he has. Very concerned. Maryellen ent has no travel history no sick contacts no recent medication changes. Patient currently is without pain. She also has high blood pressure high cholesterol MD Complaint: rapid heart beat, "heart racing", palpitations, atrial fibrillation -: unknown Context: occurred during rest Arrhythmia History: atrial fibrillation Associated Symptoms: denies other symptoms Treatments Prior to Arrival: other (none) - Related Data Home Medications Medication Instructions Recorded Confirmed Omeprazole [PriLOSEC] 20 mg PO BID PRN 10/17/14 02/21/22 Atorvastatin [Lipitor] 40 mg PO HS 02/21/22 02/21/22 Metoprolol Tartrate [Lopressor] 25 mg PO HS 02/21/22 02/21/22 Metoprolol Tartrate [Lopressor] 50 mg PO DAILY 02/21/22 02/21/22 Previous Rx's Medication Instructions Recorded Apixaban [Eliquis] 5 mg PO BID #30 tab 09/01/19 Nitroglycerin Sl Tabs [Nitrostat] 0.4 mg SUBLINGUAL Q5M PRN #50 tab 09/01/19 Allergies Allergy/AdvReac Type Severity Reaction Status Date / Time No Known Allergies Allergy Verified 04/13/22 01:03 Review of Systems ROS Statement: Those systems with pertinent positive or pertinent negative responses have been documented in the HPI. ROS Other: All systems not noted in ROS Statement are negative. Past Medical History Past Medical History: Atrial Fibrillation, Coronary Artery Disease (CAD), Hyperlipidemia, Hypertension History of Any Multi-Drug Resistant Organisms: None Reported Past Surgical History: Heart Catheterization With Stent, Hernia Repair, Orthop edic Surgery Past Anesthesia/Blood Transfusion Reactions: No Reported Reaction Date of Last Stent Placement:: 2007 Past Psychological History: No Psychological Hx Reported Smoking Status: Current every day smoker Past Alcohol Use History: Daily Past Drug Use History: None Reported - Past Family History Mother Family Medical History: Dementia, GI Bleed Father Family Medical History: Cancer Additional Family Medical History / Comment(s): colon cancer General Exam Limitations: no limitations General appearance: alert, in no apparent distress, anxious Head exam: Present: atraumatic, normocephalic, normal inspection Eye exam: Present: normal appearance, PERRL, EOMI. Absent: scleral icterus, conjunctival injection, periorbital swelling ENT exam: Present: normal exam, mucous membranes moist Neck exam: Present: normal inspection. Absent: tenderness, meningismus, lymp hadenopathy Respiratory exam: Present: normal lung sounds bilaterally. Absent: respiratory distress, wheezes, rales, rhonchi, stridor Cardiovascular Exam: Present: regular rate, normal rhythm, normal heart sounds. Absent: systolic murmur, diastolic murmur, rubs, gallop, clicks GI/Abdominal exam: Present: soft, normal bowel sounds. Absent: distended, tenderness, guarding, rebound, rigid Extremities exam: Present: normal inspection, full ROM, normal capillary refill. Absent: tenderness, pedal edema, joint swelling, calf tenderness Back exam: Present: normal inspection Neurological exam: Present: alert, oriented X3, CN II-XII intact Psychiatric exam: Present: normal affect, normal mood Skin exam: Present: warm, dry, intact, normal color. Absent: rash Course Vital Signs 04/13/22 04/13/22 04/13/22 01:00 02:13 02:26 Temperature 97.6 F Pulse Rate 67 78 81 Respiratory 18 18 18 Rate Blood Pressure 102/63 121/80 121/80 O2 Sat by Pulse 100 98 95 Oximetry - Reevaluation(s) Reevaluation #1: 04/13/22 Medical record is reviewed Patient is significantly improved here in the emergency department Patient is not in atrial fibrillation at all throughout entire ER stay Patient informed results and questions answered EKG Findings - EKG Comments: EKG Findings:: EKG is atrial fib 97 QRS 118 QTC 349 - EKG Results: EKG: interpreted by OSMIN CARY (EKG shows sinus rhythm 84 NV 172 QRS 93 QTC 391) Medical Decision Making - Medical Decision Making 71 male to the ER for evaluation. Patient presents to the ER today for evalua tion regards to what he believes a fibrillation patient is in normal sinus rhythm and can be discharged home - Lab Data Result diagrams: 04/13/22 03:14 04/13/22 03:14 Lab Results 04/13/22 04/13/22 04/13/22 Range/Units 03:14 03:14 03:14 WBC 9.6 (3.8-10.6) k/uL RBC 4.63 (4.30-5.90) m/uL Hgb 14.4 (13.0-17.5) gm/dL Hct 45.1 (39.0-53.0) % MCV 97.4 (80.0-100.0) fL MCH 31.1 (25.0-35.0) pg MCHC 31.9 (31.0-37.0) g/dL RDW 13.1 (11.5-15.5) % Plt Count 225 (150-450) k/uL MPV 10.1 Neutrophils % 60 % Lymphocytes % 25 % Monocytes % 9 % Eosinophils % 3 % Basophils % 1 % Neutrophils # 5.7 (1.3-7.7) k/uL Lymphocytes # 2.4 (1.0-4.8) k/uL Monocytes # 0.9 (0-1.0) k/uL Eosinophils # 0.3 (0-0.7) k/uL Basophils # 0.1 (0-0.2) k/uL PT 10.4 (9.0-12.0) sec INR 1.0 (<1.2) APTT 25.2 (22.0-30.0) sec Sodium 137 (137-145) mmol/L Potassium 4.7 (3.5-5.1) mmol/L Chloride 109 H (98-107) mmol/L Carbon Dioxide 19 L (22-30) mmol/L Anion Gap 9 mmol/L BUN 19 (9-20) mg/dL Creatinine 1.13 (0.66-1.25) mg/dL Est GFR (CKD-EPI)AfAm 76 (>60 ml/min/1.73 sqM) Est GFR (CKD-EPI)NonAf 65 (>60 ml/min/1.73 sqM) Glucose 79 (74-99) mg/dL Calcium 8.9 (8.4-10.2) mg/dL Phosphorus 4.2 (2.5-4.5) mg/dL Magnesium 2.0 (1.6-2.3) mg/dL Total Bilirubin 0.3 (0.2-1.3) mg/dL AST 31 (17-59) U/L ALT 21 (4-49) U/L Alkaline Phosphatase 100 (38-126) U/L Troponin I (0.000-0.034) ng/mL NT-Pro-B Natriuret Pep pg/mL Total Protein 6.8 (6.3-8.2) g/dL Albumin 4.0 (3.5-5.0) g/dL TSH 6.040 H (0.465-4.680) mIU/L 04/13/22 04/13/22 Range/Units 03:14 03:14 WBC (3.8-10.6) k/uL RBC (4.30-5.90) m/uL Hgb (13.0-17.5) gm/dL Hct (39.0-53.0) % MCV (80.0-100.0) fL MCH (25.0-35.0) pg MCHC (31.0-37.0) g/dL RDW (11.5-15.5) % Plt Count (150-450) k/uL MPV Neutrophils % % Lymphocytes % % Monocytes % % Eosinophils % % Basophils % % Neutrophils # (1.3-7.7) k/uL Lymphocytes # (1.0-4.8) k/uL Monocytes # (0-1.0) k/uL Eosinophils # (0-0.7) k/uL Basophils # (0-0.2) k/uL PT (9.0-12.0) sec INR (<1.2) APTT (22.0-30.0) sec Sodium (137-145) mmol/L Potassium (3.5-5.1) mmol/L Chloride (98-107) mmol/L Carbon Dioxide (22-30) mmol/L Anion Gap mmol/L BUN (9-20) mg/dL Creatinine (0.66-1.25) mg/dL Est GFR (CKD-EPI)AfAm (>60 ml/min/1.73 sqM) Est GFR (CKD-EPI)NonAf (>60 ml/min/1.73 sqM) Glucose (74-99) mg/dL Calcium (8.4-10.2) mg/dL Phosphorus (2.5-4.5) mg/dL Magnesium (1.6-2.3) mg/dL Total Bilirubin (0.2-1.3) mg/dL AST (17-59) U/L ALT (4-49) U/L Alkaline Phosphatase (38-126) U/L Troponin I <0.012 (0.000-0.034) ng/mL NT-Pro-B Natriuret Pep 296 pg/mL Total Protein (6.3-8.2) g/dL Albumin (3.5-5.0) g/dL TSH (0.465-4.680) mIU/L Disposition Clinical Impression: Atrial fibrillation with RVR, Normal sinus rhythm Disposition: HOME SELF-CARE Condition: Good Instructions (If sedation given, give patient instructions): A-fib (Atrial Fibrillation) (ED) Is patient prescribed a controlled substance at d/c from ED?: No Referrals: Duong Sinha MD [Primary Care Provider] - 1-2 days
[2022-04-13] MEDS ORDERED: METOPROLOL TARTRATE 5 MG/5 ML VIAL IVP STA (01:39)
[2022-04-13] MEDS ORDERED: DILTIAZEM DRIP BOLUS FROM BAG 1 MG SOLN IV ONE (01:39)
[2022-04-13] MEDS ORDERED: DILTIAZEM 125 MG in SODIUM CHLORIDE 0.9% 100 ML IV SCH (01:45)
[2022-04-13 02:27] VITALS: BP 121/80; PULSE 81; RESP 18
[2022-04-13 03:33] LABS: Basophils # (A) 0.1 k/uL (0-0.2); Basophils % (A) 1 %; Eosinophils # (A) 0.3 k/uL (0-0.7); Eosinophils % (A) 3 %; HCT 45.1 % (39.0-53.0); HGB 14.4 gm/dL (13.0-17.5); Lymphocytes # (A) 2.4 k/uL (1.0-4.8); Lymphocytes % (A) 25 %; MCH 31.1 pg (25.0-35.0); MCHC 31.9 g/dL (31.0-37.0); MCV 97.4 fL (80.0-100.0); Mean Platelet Volume 10.1; Monocytes # (A) 0.9 k/uL (0-1.0); Monocytes % (A) 9 %; Neutrophils # (A) 5.7 k/uL (1.3-7.7); Neutrophils % (A) 60 %; Platelet Count 225 k/uL (150-450); RBC 4.63 m/uL (4.30-5.90); RDW 13.1 % (11.5-15.5); WBC 9.6 k/uL (3.8-10.6)
[2022-04-13 03:44] LABS: Calcium 8.9 mg/dL (8.4-10.2); Phosphorus 4.2 mg/dL (2.5-4.5); Potassium 4.7 mmol/L (3.5-5.1); Total Bilirubin 0.3 mg/dL (0.2-1.3); Total Protein 6.8 g/dL (6.3-8.2)
[2022-04-13 03:56] LABS: Partial Thromboplastin Time 25.2 sec (22.0-30.0); Prothrombin Time 10.4 sec (9.0-12.0)
== END 2022-04-13 04:20 | disposition home or self-care (01) ==
LOC: EC 00:53
DX: I48.91 Unspecified atrial fibrillation (principal); E78.5 Hyperlipidemia, unspecified; I10 Essential (primary) hypertension; F17.200 Nicotine dependence, unspecified, uncomplicated
CPT/HCPCS: 36415; 80053; 83735; 83880; 84100; 84443; 84484; 85025; 85610; 85730; 93005

== ENCOUNTER → 2023-05-08 | Outpatient (CLI) | payer MEDICARE ==
--- NOTE | 2023-05-08 13:51 | XR ---
EXAMINATION TYPE: XR knee complete LT DATE OF EXAM: 05/08/2023 COMPARISON: None HISTORY: Pain since fall in December TECHNIQUE: 3 view right knee FINDINGS: Joint spaces are preserved. No acute fracture or dislocation is evident. No joint effusion is evident. Follow up exams can be performed 7-10 days from acute trauma for continued pain. IMPRESSION: 1. No acute or subacute osseous abnormality left knee.
--- NOTE | 2023-05-08 13:52 | XR ---
EXAMINATION TYPE: XR shoulder complete RT DATE OF EXAM: 05/08/2023 COMPARISON: NONE HISTORY: Pain TECHNIQUE: Right Shoulder examined in 3 projections. FINDINGS: The humeral head articulates with the glenoid. The acromio-clavicular junction is normal. No acute fractures or dislocations are evident. A follow up study can be performed 7-10 days from acute trauma for continued pain. MRI can be perfor med if soft tissue evaluation would be of benefit. IMPRESSION: 1. No acute osseous right shoulder abnormality.
== END | disposition home or self-care (01) ==
LOC: RADXRMAIN 11:24
PROVIDERS: ATTEND Family Medicine
DX: M25.562 Pain in left knee (principal); M25.511 Pain in right shoulder

== ENCOUNTER → 2024-01-04 | Outpatient (CLI) | payer MEDICARE, BC ==
--- NOTE | 2024-01-05 18:05 | CT ---
EXAMINATION TYPE: CT brain wo con DATE OF EXAM: 01/04/2024 COMPARISON: None INDICATION: unspecified visual disturbance and dizziness DLP: 1199 mGycm, Automated exposure control for dose reduction was used. CONTRAST: None CT of the brain is performed utilizing 3 mm thick sections through the posterior fossa and 3 mm thick sections through the remaining calvarium. Study is performed within 24 hours of arrival to the hosp [facility]. No abnormal hyperdensity is present to suggest an acute intracranial hemorrhage. No mass lesion is evident. No acute infarcts are evident. Ventricles and sulci are appropriate for the patient age. Paranasal sinuses and mastoid air cells within the [id number] are clear. IMPRESSION: 1. No acute intracranial process. Follow-up MRI can be performed as clinically indicated.
== END | disposition home or self-care (01) ==
LOC: RADCTMAIN 09:27
PROVIDERS: ATTEND Family Medicine
DX: H53.9 Unspecified visual disturbance (principal); R42 Dizziness and giddiness
CPT/HCPCS: 70450

== ENCOUNTER → 2024-07-08 | Outpatient (CLI) | payer MEDICARE, BC ==
--- NOTE | 2024-08-30 11:58 | CTL ---
Site ID synapse default Patient Alphonse Rodriguez ID [id number] Age/Gender: 74Y, M Order # N/A Procedure CT LOW DOSE LUNG CANCER SCREENING Date 07/08/2024 9:33:00 AM EXAMINATION TYPE: CT Low Dose Lung DATE OF EXAM ORDERED: 07/15/2024 HISTORY: Personal history of nicotine dependence, 30 pack-year history, current smoker. Lung cancer s creening CT DLP: 140.[address] CTDI: 6.70 mGy Automated exposure control for dose reduction was used. SCREENING VISIT: First screening visit COMPARISON: No direct comparisons TECHNIQUE: Low dose computed tomography scan was performed through the chest at 1 mm thick sections a nd reconstructed images in multiple planes at 1 mm and [address] DIAGNOSTIC QUALITY: Satisfactory FINDINGS: Nodules: Right upper lobe 3.7 mm solid pulmonary nodule (series 4, image 157). Right upper lobe 4.6 mm solid pulmonary nodule (series 4, image 133). Right upper lobe 5.4 mm solid pulmonary nodule (series 4, image 112). Right middle lobe abutting the fissure 5.6 calcified granuloma. LUNGS: COPD: Severity: Mild paraseptal emphysematous changes. Fibrosis: Severity: Mild anterior bilateral upper lobe reticulation Lymph nodes: None Other findings: Diffuse mild bronchiectasis. RIGHT PLEURAL SPACE: Effusion: None Calcification: None Thickening: None Pneumothorax: None LEFT PLEURAL SPACE: Effusion: None Calcification: None Thickening: None Pneumothorax: None HEART: Heart Size: Normal, aortic valvular calcifications Coronary Calcification: post-CABG changes Pericardial Effusion: None OTHER FINDINGS: Upper abdomen: None Bony thorax: No acute process. Median sternotomy wires. Supraclavicular region: None Other: None IMPRESSION: 1. Few pulmonary nodules measuring less than 6 mm. 2. Mild COPD and pulmonary fibrotic changes. CT LUNG RAD AND CT CHEST RECOMMENDATION: Lung-Rad 2 Benign Appearance or Behavior: Continue annual sc reening with LDCT in 12 months. S Modifier (other clinically significant findings): None
== END | disposition home or self-care (01) ==
LOC: RADCTMAIN 09:30
PROVIDERS: ATTEND Family Medicine
CPT/HCPCS: 71271

== ENCOUNTER 2024-07-19 07:56 | Observation (INO) | payer MEDICARE, BC ==
[2024-07-19] MEDS: METOPROLOL TARTRATE 5 MG/5 ML VIAL IVP STA ×3 (08:11→09:47)
[2024-07-19] MEDS: SODIUM CHLORIDE 0.9% 1,000 ML IV ONE (08:12)
[2024-07-19] MEDS: SODIUM CHLORIDE 0.9% 1,000 ML IV STA ×3 (08:18→10:46)
[2024-07-19 08:24] LABS: Basophils # (A) 0.1 k/uL (0-0.2); Basophils % (A) 1 %; Eosinophils # (A) 0.2 k/uL (0-0.7); Eosinophils % (A) 1 %; HCT 48.1 % (39.0-53.0); HGB 15.9 gm/dL (13.0-17.5); Lymphocytes # (A) 2.4 k/uL (1.0-4.8); Lymphocytes % (A) 21 %; MCH 31.8 pg (25.0-35.0); MCV 96.3 fL (80.0-100.0); Mean Platelet Volume 8.6; Monocytes # (A) 0.9 k/uL (0-1.0); Monocytes % (A) 8 %; Neutrophils # (A) 7.5 k/uL (1.3-7.7); Neutrophils % (A) 67 %; Platelet Count 273 k/uL (150-450); RBC 4.99 m/uL (4.30-5.90); RDW 13.5 % (11.5-15.5); WBC 11.2 k/uL (3.8-10.6)
[2024-07-19] MEDS: ASPIRIN 81 MG PO STA (08:26)
--- NOTE | 2024-07-19 08:32 | ED ---
General Adult HPI - General Chief complaint: Arrhythmia/Palpitations Stated complaint: Afib Time Seen by Provider: 07/19/24 08:05 Source: patient, RN notes reviewed, old records reviewed Mode of arrival: ambulatory Limitations: no limitations - History of Present Illness Initial comments: Patient is a 74-year-old male who presents emergency department complaining of heart palpitations, lightheadedness, and low blood pressures. States that has been an ongoing issue for him over the last 3 days. Does have some mild left- sided chest discomfort present as well which is present when his A-fib is bothering him. States that is how he feels right now. Has endorsed a cough that is nonproductive. Please see his staying hydrated. Denies any urinary complaints. Denies abdominal pain, nausea, vomiting. Denies diarrhea. Has a past medical history remarkable for A-fib on blood thinners, CAD, hyperlipidemia, hypertension. Also has a history of CABG. Presents for further evaluation at this time. - Related Data Home Medications Medication Instructions Recorded Confirmed Omeprazole [PriLOSEC] 20 mg PO DAILY 10/17/14 07/19/24 Atorvastatin [Lipitor] 40 mg PO HS 02/21/22 07/19/24 Metoprolol Tartrate [Lopressor] 25 mg PO HS 02/21/22 07/19/24 Metoprolol Tartrate [Lopressor] 50 mg PO DAILY 02/21/22 07/19/24 Previous Rx's Medication Instructions Recorded Apixaban [Eliquis] 5 mg PO BID #30 tab 09/01/19 Allergies Allergy/AdvReac Type Severity Reaction Status Date / Time No Known Allergies Allergy Verified 07/19/24 10:06 Review of Systems ROS Statement: Those systems with pertinent positive or pertinent negative responses have been documented in the HPI. Review of Systems: CONST: Denies fever EYES: Denies blurry vision ENT: Denies nasal congestion C/V: Endorses chest pain, palpitations RESP: Denies shortness of breath GI: Denies abdominal pain : Denies dysuria SKIN: Denies rash. MSK: Denies joint pain. NEURO: Denies headache ROS Other: All systems not noted in ROS Statement are negative. Past Medical History Past Medical History: Atrial Fibrillation, Coronary Artery Disease (CAD), Hyperlipidemia, Hypertension History of Any Multi-Drug Resistant Organisms: None Reported Past Surgical History: Heart Catheterization With Stent, Hernia Repair, Orthopedic Surgery Past Anesthesia/Blood Transfusion Reactions: No Reported Reaction Date of Last Stent Placement:: 2007 Past Psychological History: No Psychological Hx Reported Smoking Status: Current every day smoker Past Alcohol Use History: Daily Past Drug Use History: None Reported - Past Family History Mother Family Medical History: Dementia, GI Bleed Father Family Medical History: Cancer Additional Family Medical History / Comment(s): colon cancer General Exam - General Exam Comments Initial Comments: General: Appears in no acute distress. Cheerful, joking during conversation. HEAD: Normal with no signs of head trauma. EYES: PERRLA, EOMI, conjunctiva normal, no discharge. ENT: Hearing grossly intact, normal oropharynx. RESPIRATORY: Clear breath sounds bilaterally. No wheezes, rales, or rhonchi. No significant hypoxia C/V: Irregular rate and rhythm. S1 and S2 auscultated. No significant peripheral edema. Peripheral pulses 2+ intact throughout ABD: Abd is soft, nontender, nondistended EXT: Normal range of motion, no obvious deformity SKIN: No rashes or lesions observed on exposed skin. NEURO: Alert and oriented x 4. Limitations: no limitations Course Vital Signs 07/19/24 07/19/24 07/19/24 07:57 08:28 09:06 Temperature 97.6 F Pulse Rate 106 H 101 H 137 H Respiratory 26 H 20 20 Rate Blood Pressure 85/64 84/60 86/69 O2 Sat by Pulse 99 97 96 Oximetry 07/19/24 07/19/24 10:44 11:39 Temperature Pulse Rate 131 H 66 Respiratory 20 20 Rate Blood Pressure 89/65 O2 Sat by Pulse 95 97 Oximetry Medical Decision Making - Medical Decision Making Was pt. sent in by a medical professional or institution (, PA, FORGING MACHINE OPERATOR, urgent care, hospital, or shelter...) When possible be specific @ -No Did you speak to anyone other than the patient for history (EMS, parent, family, police, friend...)? What history was obtained from this source @ -No Did you review nursing and triage notes (agree or disagree)? Why? @ -I reviewed and agree with nursing and triage notes Were old charts reviewed (outside hosp., previous admission, EMS record, old EKG, old radiological studies, urgent care reports/EKG's, shelter records)? Report findings @ -Reviewed EKG from March 2022 which revealed normal sinus rhythm at that time. Today's EKG shows A-fib with RVR. Differential Diagnosis (chest pain, altered mental status, abdominal pain women, abdominal pain men, vaginal bleeding, weakness, fever, dyspnea, syncope, headache, dizziness, GI bleed, back pain, seizure, CVA, palpatations, mental health, musculoskeletal)? @ -Differential Chest Pain: Stable Angina, Unstable Angina, STEMI, NSTEMI Aortic Dissection, Pneumothorax, Musculoskeletal, Esophageal Spasm GERD, Cholecystitis, Pancreatitis, Zoster, this is not meant to be an all-inclusive list. EKG interpreted by me (3pts min.). @ -As above X-rays interpreted by me (1pt min.). @ -Chest x-ray shows no obvious acute cardiopulmonary process. CT interpreted by me (1pt min.). @ -CTA chest abdomen pelvis reveals no evidence of aortic injury or PE. Pulm onary nodule seen. Nonspecific findings otherwise. U/S interpreted by me (1pt. min.). @ -None done What testing was considered but not performed or refused? (CT, X-rays, U/S, labs)? Why? @ -None What meds were considered but not given or refused? Why? @ -None Did you discuss the management of the patient with other professionals (professionals i.e. , PA, FORGING MACHINE OPERATOR, lab, RT, psych nurse, director of social media marketing, intermodal customer service, teacher, payroll officer, case packer)? Give summary @ -Discussed with PCP Dr. Sinha who accepted the admission. Was smoking cessation discussed for >3mins.? @ -No Was critical care preformed (if so, how long)? @ -Yes, 36 minutes. Were there social determinants of health that impacted care today? How? (Homelessness, low income, unemployed, alcoholism, drug addiction, transportatio n, low edu. Level, literacy, decrease access to med. care, long term, rehab)? @ -No Was there de-escalation of care discussed even if they declined (Discuss DNR or withdrawal of care, Hospice)? DNR status @ -No What co-morbidities impacted this encounter? (DM, HTN, Smoking, COPD, CAD, Cancer, CVA, ARF, Chemo, Hep., AIDS, mental health diagnosis, sleep apnea, morbid obesity)? @ -Atrial fibrillation, CAD Was patient admitted / discharged? Hospital course, mention meds given and route, prescriptions, significant lab abnormalities, going to OR and other pertinent info. @ -Based on the patient's presentation and physical exam, patient presents emergency department complaining of palpitations, chest pain. Is in A-fib with RVR. Patient is intermittently hypotensive as well over the last 3 days. Patient will be administered IV metoprolol which improved the heart rate. He will receive multiple IV started as well as 2 L fluid bolus. We will obtain cardiac workup. Patient was in agreement this plan. Acting in no obvious distress at this time. Patient also given 324 mg of aspirin. EKG shows A-fib with RVR.Patient received a total of 3 L fluid bolus and 2 doses of IV 2.5 mg metoprolol. Patient also received a loading dose of 25 mg of oral metoprolol. Patient is feeling improved at this time. Heart rate is improved at this time in the 80s. Blood pressures are still slightly soft however maps are remaining above 65. Systolics are ranging anywhere from 89-104. Laboratory studies returned unremarkable except for SHANNAN. Troponin is undetectable. Remainder the labs unremarkable. At this time, I would like to admit the patient for further monitoring. Will continue to monitor patient's blood pressure and heart rate. He was in agreement this plan. Remains asymptomatic at this time. I spoke with Dr. Sinha who accepted the admission. I consulted cardiology. Undiagnosed new problem with uncertain prognosis? @ -No Drug Therapy requiring intensive monitoring for toxicity (Heparin, Nitro, Insulin, Cardizem)? @ -No Were any procedures done? @ -No Diagnosis/symptom? @ -Intermittent atrial fibrillation with RVR, intermittent hypotension Acute, or Chronic, or Acute on Chronic? @ -Acute Uncomplicated (without systemic symptoms) or Complicated (systemic symptoms)? @ -Complicated Side effects of treatment? @ -None Exacerbation, Progression, or Severe Exacerbation] @ -No Poses a threat to life or bodily function? @ -Yes - Lab Data Result diagrams: 07/19/24 08:14 07/19/24 08:14 Lab Results 07/19/24 07/19/24 07/19/24 Range/Units 08:14 08:14 08:14 WBC 11.2 H (3.8-10.6) k/uL RBC 4.99 (4.30-5.90) m/uL Hgb 15.9 (13.0-17.5) gm/dL Hct 48.1 (39.0-53.0) % MCV 96.3 (80.0-100.0) fL MCH 31.8 (25.0-35.0) pg MCHC 33.0 (31.0-37.0) g/dL RDW 13.5 (11.5-15.5) % Plt Count 273 (150-450) k/uL MPV 8.6 Neutrophils % 67 % Lymphocytes % 21 % Monocytes % 8 % Eosinophils % 1 % Basophils % 1 % Neutrophils # 7.5 (1.3-7.7) k/uL Lymphocytes # 2.4 (1.0-4.8) k/uL Monocytes # 0.9 (0-1.0) k/uL Eosinophils # 0.2 (0-0.7) k/uL Basophils # 0.1 (0-0.2) k/uL PT 11.2 (10.0-12.5) sec INR 1.0 (<1.2) APTT 26.4 (22.0-30.0) sec Sodium 138 (137-145) mmol/L Potassium 4.2 (3.5-5.1) mmol/L Chloride 113 H (98-107) mmol/L Carbon Dioxide 17 L (22-30) mmol/L Anion Gap 8 mmol/L BUN 23 H (9-20) mg/dL Creatinine 1.66 H (0.66-1.25) mg/dL Est GFR (CKD-EPI)AfAm 46 (>60 ml/min/1.73 sqM) Est GFR (CKD-EPI)NonAf 40 (>60 ml/min/1.73 sqM) Glucose 105 H (74-99) mg/dL Calcium 9.2 (8.4-10.2) mg/dL Magnesium 1.9 (1.6-2.3) mg/dL Total Bilirubin 0.8 (0.2-1.3) mg/dL AST 28 (17-59) U/L ALT 23 (4-49) U/L Alkaline Phosphatase 97 (38-126) U/L Troponin I (0.000-0.034) ng/mL NT-Pro-B Natriuret Pep 4190 pg/mL Total Protein 6.5 (6.3-8.2) g/dL Albumin 3.7 (3.5-5.0) g/dL Lipase 83 (23-300) U/L Urine Color Urine Appearance (Clear) Urine pH (5.0-8.0) Ur Specific Myrtle (1.001-1.035) Urine Protein (Negative) Urine Glucose (UA) (Negative) Urine Ketones (Negative) Urine Blood (Negative) Urine Nitrite (Negative) Urine Bilirubin (Negative) Urine Urobilinogen (<2.0) mg/dL Ur Leukocyte Esterase (Negative) Influenza Type A (PCR) (Not Detectd) Influenza Type B (PCR) (Not Detectd) RSV (PCR) (Not Detectd) SARS-CoV-2 (PCR) (Not Detectd) 07/19/24 07/19/24 07/19/24 Range/Units 08:14 08:21 08:21 WBC (3.8-10.6) k/uL RBC (4.30-5.90) m/uL Hgb (13.0-17.5) gm/dL Hct (39.0-53.0) % MCV (80.0-100.0) fL MCH (25.0-35.0) pg MCHC (31.0-37.0) g/dL RDW (11.5-15.5) % Plt Count (150-450) k/uL MPV Neutrophils % % Lymphocytes % % Monocytes % % Eosinophils % % Basophils % % Neutrophils # (1.3-7.7) k/uL Lymphocytes # (1.0-4.8) k/uL Monocytes # (0-1.0) k/uL Eosinophils # (0-0.7) k/uL Basophils # (0-0.2) k/uL PT (10.0-12.5) sec INR (<1.2) APTT (22.0-30.0) sec Sodium (137-145) mmol/L Potassium (3.5-5.1) mmol/L Chloride (98-107) mmol/L Carbon Dioxide (22-30) mmol/L Anion Gap mmol/L BUN (9-20) mg/dL Creatinine (0.66-1.25) mg/dL Est GFR (CKD-EPI)AfAm (>60 ml/min/1.73 sqM) Est GFR (CKD-EPI)NonAf (>60 ml/min/1.73 sqM) Glucose (74-99) mg/dL Calcium (8.4-10.2) mg/dL Magnesium (1.6-2.3) mg/dL Total Bilirubin (0.2-1.3) mg/dL AST (17-59) U/L ALT (4-49) U/L Alkaline Phosphatase (38-126) U/L Troponin I <0.012 (0.000-0.034) ng/mL NT-Pro-B Natriuret Pep pg/mL Total Protein (6.3-8.2) g/dL Albumin (3.5-5.0) g/dL Lipase (23-300) U/L Urine Color Yellow Urine Appearance Clear (Clear) Urine pH 6.0 (5.0-8.0) Ur Specific Myrtle 1.015 (1.001-1.035) Urine Protein Negative (Negative) Urine Glucose (UA) Negative (Negative) Urine Ketones Negative (Negative) Urine Blood Negative (Negative) Urine Nitrite Negative (Negative) Urine Bilirubin Negative (Negative) Urine Urobilinogen <2.0 (<2.0) mg/dL Ur Leukocyte Esterase Negative (Negative) Influenza Type A (PCR) Not Detected (Not Detectd) Influenza Type B (PCR) Not Detected (Not Detectd) RSV (PCR) Not Detected (Not Detectd) SARS-CoV-2 (PCR) Not Detected (Not Detectd) - EKG Data -: EKG Interpreted by Me EKG Comments: 12-lead Electrocardiogram Interpretation Note EKG was reviewed and interpreted by myself. 12-lead ECG performed at 807 is interpreted by me as revealing A-fib with RVR at a rate of 145 beats per minute. Surveyor is normal. QRS duration is 130 ms, QTc is 3 and 60 ms.. There were no ST or T wave abnormalities to suggest myocardial ischemia or injury. R wave progression across the precordium was satisfactory. By my interpretation this EKG is non-diagnostic for acute ischemia. 12-lead Electrocardiogram Interpretation Note EKG was reviewed and interpreted by myself. 12-lead ECG performed at 0901 is interpreted by me as revealing A-fib with RVR at a rate of 129 beats per minute. Surveyor is normal. [place] interval is unobtainable, QRS duration is 100 ms, QTc is 369 ms.. There were no ST or T wave abnormalities to suggest myocardial i schemia or injury. R wave progression across the precordium was satisfactory. By my interpretation this EKG is non-diagnostic for acute ischemia. 12-lead Electrocardiogram Interpretation Note EKG was reviewed and interpreted by myself. 12-lead ECG performed at 1027 is interpreted by me as revealing atrial fibrillation, rate controlled at a rate of 88 beats per minute. Surveyor is normal. QRS duration is 104 ms, QTc is 407 ms.. There were no ST or T wave abnormalities to suggest myocardial ischemia or injury. R wave progression across the precordium was satisfactory. By my interpretation this EKG is non-diagnostic for acute ischemia. Disposition Clinical Impression: Atrial fibrillation, Hypotension, Atrial fibrillation with RVR Disposition: ADMITTED IP TO THIS HOSP Condition: Stable Time of Disposition: 10:55
[2024-07-19 08:43] LABS: Partial Thromboplastin Time 26.4 sec (22.0-30.0); Prothrombin Time 11.2 sec (10.0-12.5)
[2024-07-19 08:49] LABS: ALT 23 U/L (4-49); AST 28 U/L (17-59); African American GFR (CKD) 46 (>60 ml/min/1.73 sqM); Albumin 3.7 g/dL (3.5-5.0); Alkaline Phosphatase 97 U/L (38-126); Anion Gap 8 mmol/L; Blood Urea Nitrogen 23 mg/dL (9-20); Calcium 9.2 mg/dL (8.4-10.2); Carbon Dioxide 17 mmol/L (22-30); Chloride 113 mmol/L (98-107); Glucose 105 mg/dL (74-99); Lipase 83 U/L (23-300); Magnesium 1.9 mg/dL (1.6-2.3); Non-African American GFR(CKD) 40 (>60 ml/min/1.73 sqM); Potassium 4.2 mmol/L (3.5-5.1); Sodium 138 mmol/L (137-145); Total Bilirubin 0.8 mg/dL (0.2-1.3); Total Protein 6.5 g/dL (6.3-8.2)
[2024-07-19 08:58] LABS: NT-Pro-B-Type Natriuretic Pept 4190 pg/mL
[2024-07-19] MEDS: METOPROLOL TARTRATE 25 MG TAB PO STA (09:03)
[2024-07-19 09:12] LABS: Appearance,Urine Clear (Clear); Bilirubin,Urine Negative (Negative); Blood,Urine Negative (Negative); Color,Urine Yellow; Glucose,Urine (UA) Negative (Negative); Ketones,Urine Negative (Negative); Leukocyte Esterase,Urine Negative (Negative); Nitrite,Urine Negative (Negative); Protein,Urine Negative (Negative); Specific Gravity,Urine 1.015 (1.001-1.035); Urobilinogen,Urine <2.0 mg/dL (<2.0)
--- NOTE | 2024-07-19 09:17 | XR ---
EXAMINATION TYPE: XR chest 2V DATE OF EXAM: 07/19/2024 8:50 AM CLINICAL INDICATION: Male, 74 years old with history of Chest Pain; COMPARISON: Chest radiographs from 02/21/2022 TECHNIQUE: XR chest 2V Frontal view of the chest. FINDINGS: Lungs/Pleura: There is no evidence of pleural effusion, focal consolidation, or pneumothorax. Pulmonary vascularity: Unremarkable. Heart/mediastinum: Cardiomediastinal silhouette is unremarkable. Musculoskeletal: Degenerative changes of the shoulder joints. Midline sternotomy wires are noted. Other findings: None IMPRESSION: No acute cardiopulmonary disease/process.
--- NOTE | 2024-07-19 10:45 | CT ---
EXAMINATION TYPE: CT angio thor/abd pel aorta DATE OF EXAM: 07/19/2024 10:34 AM COMPARISON: 1624 HISTORY: PE vs aortic injury CT DLP: 1558.7 mGycm Automated exposure control for dose reduction was used. TECHNIQUE: Performed without and with IV Contrast, patient injected with 80 mL of Isovue 370. . FINDINGS: Mild atherosclerotic changes aorta. Calcification aortic valve. Moderate coronary artery calcificatio ns. Median sternotomy changes. No diagnostic evidence of aortic dissection. No sizable aneurysm. There is a calcified granuloma. Reflux of contrast into the IVC can be associated with elevated right heart pressures and tricuspid disease. Biapical pleural thickening and emphysematous changes. Periph eral groundglass changes could been the basis of a pneumonitis. There is a 4 mm nodule in the right u pper lobe image 26 series 2012 small to characterize. Additional subcentimeter nodules seen in right middle lobe image 48 series 201. Basilar subsegmental atelectasis versus scarring favored over pneumo adria. There is borderline mediastinal and hilar lymphadenopathy. There is no pathologic sized lymph node in the mediastinum AP window measuring short axis of 1.4 cm. Central pulmonary arteries appear to enhance normally. No diagnostic evidence of central pulmonary em bolism. No pleural effusion or pneumothorax. No gallstones. Liver slightly reduced attenuation correlate for hepatic steatosis of underlying hepat ocellular disease. Renal cysts and too small to characterize left renal cyst. Air within the pulmonary artery likely is iatrogenic from the catheter Small fat-containing umbilical hernia. Bladder normal. Prostate measures 4.4 cm. No free fluid or claritza e air. Bowel gas pattern nonspecific. No obstruction. Thickening of the adrenal glands likely the basis of b enign hyperplasia. Pancreas normal. Small hiatal hernia. Small fat-containing umbilical hernia. Multi level hypertrophic and degenerative changes of the spine. Bilateral hip arthropathy. IMPRESSION: 1. No evidence of aortic aneurysm or dissection. Calcific changes of the aortic valve. 2. Fairly diffuse atherosclerotic disease of the coronary arteries. 3 no central pulmonary vessels. 4. There is mediastinal and hilar adenopathy which is nonspecific. Correlate clinically. Underlying m alignancy not excluded. 5. Groundglass changes in the lung peripheries of the lungs may represent atelectasis correlate clini adore to exclude a pneumonitis including atypical or viral pneumonitis. 6. Sub 5 mm pulmonary nodules too small to characterize, recommend 12 month follow-up CT scan current Fleischner Society pancreas..
[2024-07-19] MEDS ORDERED: NALOXONE 0.4 MG/ML 1 ML VIAL IV PRN (10:53)
--- NOTE | 2024-07-19 13:32 | P.CRDCN ---
History of Present Illness Consult date: 07/19/24 Consult reason: atrial fibrillation History of present illness: Known coronary artery disease status post bypass surgery hypertension dyslipidemia and paroxysmal atrial fibrillation presents to hospital complaining of episodes of palpitations and chest discomfort for the last 3 days. He has been having on and off episodes of sustained palpitations for the last 3 days. At the time of my evaluation he is in sinus rhythm stable hemodynamically and free of any symptoms. His initial presentation EKG revealed atypical atrial flutter with rapid ventricular rate. There is no prior history of exertional chest discomfort shortness of breath PND or orthopnea. 2 sets of cardiac enzymes have been negative. I advised the patient to undergo an echocardiogram continue his current medications I will start him on amiodarone for rhythm suppression and if he is doing well hopefully home tomorrow. Past medical history significant for coronary artery disease status post bypass surgery Paroxysmal atrial fibrillation hypertension dyslipidemia Medications at home included Eliquis metoprolol Prilosec and Lipitor allergies there are no known drug allergies Family history is negative for premature coronary artery disease Social history is negative for smoking issues or drug abuse Review of systems: 14 out of 14 review of systems has been performed pertinent's are as documented On exam comfortable at rest vital signs are stable there is no jugular venous distention carotid upstroke is normal there is no bruit chest exam reveals good air entry bilaterally heart exam reveals first and second heart sounds no gallop no murmur abdomen is soft nontender examination extremities did not reveal any edema peripheral pulses are felt. Labs: Troponins are negative. Assessment and plan: Atypical atrial flutter with rapid ventricular rate Coronary artery disease status post CABG Plan I advised the patient to start amiodarone for rhythm suppression as he seems to be very symptomatic when he has episodes of atrial flutter. Past Medical History Past Medical History: Atrial Fibrillation, Coronary Artery Disease (CAD), Hyperlipidemia, Hypertension History of Any Multi-Drug Resistant Organisms: None Reported Past Surgical History: Heart Catheterization With Stent, Hernia Repair, Orthopedic Surgery Past Anesthesia/Blood Transfusion Reactions: No Reported Reaction Date of Last Stent Placement:: 2007 Past Psychological History: No Psychological Hx Reported Smoking Status: Current every day smoker Past Alcohol Use History: Daily Past Drug Use History: None Reported - Past Family History Mother Family Medical History: Dementia, GI Bleed Father Family Medical History: Cancer Additional Family Medical History / Comment(s): colon cancer Medications and Allergies Home Medications Medication Instructions Recorded Confirmed Type Omeprazole [PriLOSEC] 20 mg PO DAILY 10/17/14 07/19/24 History Apixaban [Eliquis] 5 mg PO BID #30 tab 09/01/19 07/19/24 Rx Atorvastatin [Lipitor] 40 mg PO HS 02/21/22 07/19/24 History Metoprolol Tartrate [Lopressor] 25 mg PO HS 02/21/22 07/19/24 History Metoprolol Tartrate [Lopressor] 50 mg PO DAILY 02/21/22 07/19/24 History Allergies Allergy/AdvReac Type Severity Reaction Status Date / Time No Known Allergies Allergy Verified 07/19/24 10:06 Physical Exam Vitals: Vital Signs Temp Pulse Resp BP Pulse Ox 07/19/24 12:30 97.7 F 62 17 99/68 97 07/19/24 11:39 66 20 97 07/19/24 10:44 131 H 20 89/65 95 07/19/24 09:06 137 H 20 86/69 96 07/19/24 08:28 101 H 20 84/60 97 07/19/24 07:57 97.6 F 106 H 26 H 85/64 99 Intake and Output 07/18/24 07/19/24 07/19/24 22:59 06:59 14:59 Other: Weight 81.647 kg Results 07/19/24 08:14 07/19/24 08:14 Cardiac Enzymes 07/19/24 07/19/24 07/19/24 Range/Units 08:14 08:14 12:08 AST 28 (17-59) U/L Troponin I <0.012 0.017 (0.000-0.034) ng/mL Coagulation 07/19/24 Range/Units 08:14 PT 11.2 (10.0-12.5) sec APTT 26.4 (22.0-30.0) sec CBC 07/19/24 Range/Units 08:14 WBC 11.2 H (3.8-10.6) k/uL RBC 4.99 (4.30-5.90) m/uL Hgb 15.9 (13.0-17.5) gm/dL Hct 48.1 (39.0-53.0) % Plt Count 273 (150-450) k/uL Comprehensive Metabolic Panel 07/19/24 Range/Units 08:14 Sodium 138 (137-145) mmol/L Potassium 4.2 (3.5-5.1) mmol/L Chloride 113 H (98-107) mmol/L Carbon Dioxide 17 L (22-30) mmol/L BUN 23 H (9-20) mg/dL Creatinine 1.66 H (0.66-1.25) mg/dL Glucose 105 H (74-99) mg/dL Calcium 9.2 (8.4-10.2) mg/dL AST 28 (17-59) U/L ALT 23 (4-49) U/L Alkaline Phosphatase 97 (38-126) U/L Total Protein 6.5 (6.3-8.2) g/dL Albumin 3.7 (3.5-5.0) g/dL Current Medications Generic Name Dose Route Start Last Admin Trade Name Freq PRN Reason Stop Dose Admin Apixaban 5 mg 07/19/24 21:00 Apixaban 5 Mg Tab PO BID RASHID Protocol Atorvastatin Calcium 40 mg 07/19/24 21:00 Atorvastatin 40 Mg Tab PO HS RASHID Sodium Chloride 1,000 mls @ 75 mls/hr 07/19/24 09:36 07/19/24 10:46 Saline 0.9% IV 07/19/24 22:55 75 mls/hr .[id number] STA Administration Metoprolol Tartrate 25 mg 07/19/24 21:00 Metoprolol Tartrate 25 Mg Tab PO HS RASHID Metoprolol Tartrate 50 mg 07/20/24 09:00 Metoprolol Tartrate 50 Mg Tab PO DAILY RASHID Naloxone HCl 0.2 mg 07/19/24 10:53 Naloxone 0.4 Mg/Ml 1 Ml Vial IV Q2M PRN Opioid Reversal Pantoprazole Sodium 40 mg 07/20/24 07:30 Pantoprazole 40 Mg Tablet PO [id number] RASHID Intake and Output 07/18/24 07/19/24 07/19/24 22:59 06:59 14:59 Other: Weight 81.647 kg Patient Weight 07/20/24 06:59 Weight 81.647 kg 07/19/24 08:14 07/19/24 08:14
[2024-07-19] MEDS: AMIODARONE 200 MG TAB PO SCH (14:48)
[2024-07-19] MEDS: ATORVASTATIN 40 MG TAB PO SCH (20:29)
[2024-07-19] MEDS: APIXABAN 5 MG TAB PO SCH (20:29)
[2024-07-19] MEDS: METOPROLOL TARTRATE 25 MG TAB PO SCH (20:29)
[2024-07-20] MEDS: PANTOPRAZOLE 40 MG TABLET PO SCH (06:01)
[2024-07-20] MEDS: METOPROLOL TARTRATE 50 MG TAB PO SCH (06:03)
[2024-07-20 08:07] VITALS: RESP 16
--- NOTE | 2024-07-20 08:21 | P.HPIM ---
History of Present Illness H&P Date: 07/20/24 Chief Complaint: Palpitations This is a 74-year-old white male with known history atrial fibrillation that came in with significant dizziness and palpitations. The patient was admitted secondary to atrial fibrillation with rapid ventricular response. Cardiology has been consulted. Appreciate input. Patient is now in his rooms standing up without dizziness. Monitor shows sinus rhythm with slight bradycardia. He is somewhat reluctant to continue to add more medications. Otherwise no fever chills no voiding difficulties. No significant chest pain or shortness of b reath at this point. No nausea, vomiting or diarrhea Review of Systems All systems: negative Past Medical History Past Medical History: Atrial Fibrillation, Coronary Artery Disease (CAD), Hyperlipidemia, Hypertension History of Any Multi-Drug Resistant Organisms: None Reported Past Surgical History: Coronary Bypass/CABG, Heart Catheterization With Stent, Hernia Repair, Orthopedic Surgery Additional Past Surgical History / Comment(s): cabg 2014 Past Anesthesia/Blood Transfusion Reactions: No Reported Reaction Date of Last Stent Placement:: 2007 Past Psychological History: No Psychological Hx Reported Smoking Status: Current every day smoker Past Alcohol Use History: Daily Past Drug Use History: None Reported - Past Family History Mother Family Medical History: Dementia, GI Bleed Father Family Medical History: Cancer Additional Family Medical History / Comment(s): colon cancer Medications and Allergies Home Medications Medication Instructions Recorded Confirmed Type Omeprazole [PriLOSEC] 20 mg PO DAILY 10/17/14 07/19/24 History Apixaban [Eliquis] 5 mg PO BID #30 tab 09/01/19 07/19/24 Rx Atorvastatin [Lipitor] 40 mg PO HS 02/21/22 07/19/24 History Metoprolol Tartrate [Lopressor] 25 mg PO HS 02/21/22 07/19/24 History Metoprolol Tartrate [Lopressor] 50 mg PO DAILY 02/21/22 07/19/24 History Allergies Allergy/AdvReac Type Severity Reaction Status Date / Time No Known Allergies Allergy Verified 07/19/24 10:06 Physical Exam Vitals: Vital Signs Temp Pulse Pulse Resp BP BP Pulse Ox 07/20/24 08:00 97.8 F 74 16 129/64 96 07/20/24 04:00 97.8 F 69 18 134/77 97 07/19/24 23:48 98.1 F 70 17 109/67 98 07/19/24 20:41 98.1 F 64 18 108/66 97 07/19/24 19:37 97.8 F 07/19/24 19:00 64 17 123/87 100 07/19/24 15:00 62 16 121/75 97 07/19/24 12:30 97.7 F 62 17 99/68 97 07/19/24 11:39 66 20 97 07/19/24 10:44 131 H 20 89/65 95 07/19/24 09:06 137 H 20 86/69 96 07/19/24 08:28 101 H 20 84/60 97 Intake and Output 07/19/24 07/20/24 07/20/24 22:59 06:59 14:59 Intake Total 118 Output Total 400 Balance -400 118 Intake: Oral 118 Output: Urine 400 Other: # Voids 1 Weight 81.647 kg 86.1 kg - Constitutional General appearance: cooperative, no acute distress - EENT Eyes: EOMI - Neck Neck: no lymphadenopathy - Respiratory Respiratory: bilateral: CTA - Cardiovascular Rhythm: regular Heart sounds: normal: S1, S2 Abnormal Heart Sounds: no S3 Gallop, no S4 Gallop - Gastrointestinal General gastrointestinal: soft, no tenderness - Integumentary Integumentary: no cellulitis - Neurologic Neurologic: CNII-XII intact - Musculoskeletal Musculoskeletal: gait normal - Psychiatric Psychiatric: A&O x's 3, appropriate affect Results CBC & Chem 7: 07/19/24 08:14 07/19/24 08:14 Labs: Abnormal Lab Results - Last 24 Hours (Table) 07/19/24 07/19/24 Range/Units 08:14 08:14 WBC 11.2 H (3.8-10.6) k/uL Chloride 113 H (98-107) mmol/L Carbon Dioxide 17 L (22-30) mmol/L BUN 23 H (9-20) mg/dL Creatinine 1.66 H (0.66-1.25) mg/dL Glucose 105 H (74-99) mg/dL Thrombosis Risk Factor Assmnt - Choose All That Apply Any of the Below Risk Factors Present?: No Other Risk Factors: Yes Each Risk Factor Represents 2 Points: Age 61-74 years Other congenital or acquired thrombophilia - If yes, enter type in comment: No Thrombosis Risk Factor Assessment Total Risk Factor Score: 2 Thrombosis Risk Factor Assessment Level: Low Risk Assessment and Plan (1) Atrial fibrillation with RVR Current Visit: Yes Status: Acute Code(s): I48.91 - UNSPECIFIED ATRIAL FIBRILLATION SNOMED Code(s): 517157284478358 (2) Hypotension Current Visit: Yes Status: Acute Code(s): I95.9 - HYPOTENSION, UNSPECIFIED SNOMED Code(s): 19054377 Plan: Titration of medication. Echocardiogram. Need for reconcile medications as necessary. Again, appreciate cardiology input. See orders otherwise. The patient is otherwise full code Time with Patient: Greater than 30
[2024-07-20 10:13] LABS: Basophils % (A) 0 %; Eosinophils # (A) 0.1 k/uL (0-0.7); Eosinophils % (A) 1 %; HCT 39.5 % (39.0-53.0); Lymphocytes # (A) 1.2 k/uL (1.0-4.8); Lymphocytes % (A) 17 %; MCH 32.6 pg (25.0-35.0); MCHC 32.9 g/dL (31.0-37.0); MCV 99.2 fL (80.0-100.0); Mean Platelet Volume 9.5; Monocytes # (A) 0.5 k/uL (0-1.0); Monocytes % (A) 8 %; Neutrophils % (A) 71 %; Platelet Count 190 k/uL (150-450); RBC 3.98 m/uL (4.30-5.90)
[2024-07-20 10:16] LABS: ALT 21 U/L (4-49); AST 27 U/L (17-59); African American GFR (CKD) 69 (>60 ml/min/1.73 sqM); Albumin 3.3 g/dL (3.5-5.0); Alkaline Phosphatase 81 U/L (38-126); Anion Gap 5 mmol/L; Blood Urea Nitrogen 16 mg/dL (9-20); Calcium 8.1 mg/dL (8.4-10.2); Carbon Dioxide 17 mmol/L (22-30); Chloride 115 mmol/L (98-107); Glucose 101 mg/dL (74-99); Non-African American GFR(CKD) 60 (>60 ml/min/1.73 sqM); Potassium 4.1 mmol/L (3.5-5.1); Sodium 137 mmol/L (137-145); Total Bilirubin 0.5 mg/dL (0.2-1.3); Total Protein 5.6 g/dL (6.3-8.2)
--- NOTE | 2024-07-20 11:36 | P.PN ---
Subjective Progress Note Date: 07/20/24 History of present illness: Known coronary artery disease status post bypass surgery hypertension dyslipidemia and paroxysmal atrial fibrillation presents to hospital complaining of episodes of palpitations and chest discomfort for the last 3 days. He has been having on and off episodes of sustained palpitations for the last 3 days. At the time of my evaluation he is in sinus rhythm stable hemodynamically and free of any symptoms. His initial presentation EKG revealed atypical atrial flutter with rapid ventricular rate. There is no prior history of exertional chest discomfort shortness of breath PND or orthopnea. 2 sets of cardiac enzymes have been negative. I advised the patient to undergo an echocardiogram continue his current medications I will start him on amiodarone for rhythm suppression and if he is doing well hopefully home tomorrow. Past medical history significant for coronary artery disease status post bypass surgery Paroxysmal atrial fibrillation hypertension dyslipidemia Labs: Troponins are negative. Medications at home included Eliquis metoprolol Prilosec and Lipitor allergies there are no known drug allergies Family history is negative for premature coronary artery disease Social history is negative for smoking issues or drug abuse Review of systems: 14 out of 14 review of systems has been performed pertinent's are as documented 07/20 Patient is seen today in follow-up. He has converted to sinus rhythm. Patient has refused to take amiodarone. Blood pressure 129/64, heart rate 74, pulse ox 96% on room air. Repeat blood work reveals hemoglobin 13, BUN 16 creatinine 1.19 On exam comfortable at rest vital signs are stable there is no jugular venous distention carotid upstroke is normal there is no bruit chest exam reveals good air entry bilaterally heart exam reveals first and second heart sounds no gallop no murmur abdomen is soft nontender examination extremities did not reveal any edema peripheral pulses are felt. Assessment and plan: Atypical atrial flutter with rapid ventricular rate, converted to sinus rhythm Coronary artery disease status post CABG Plan: Patient is cleared for discharge from cardiology. Patient will not be going home on amiodarone per his request. Patient to follow-up in the office in 1 to 2 weeks. Nurse practitioner note has been reviewed, I agree with documented findings and plan of care. Patient was seen and examined. Objective - Vital Signs Vital signs: Vital Signs Temp 97.8 F 07/20/24 08:00 Pulse 74 07/20/24 08:00 Resp 16 07/20/24 08:00 BP 129/64 07/20/24 08:00 Pulse Ox 96 07/20/24 08:00 FiO2 Intake & Output 07/19/24 07/20/24 07/20/24 18:59 06:59 18:59 Intake Total 118 Output Total 400 Balance -400 118 Weight 81.647 kg 86.1 kg Intake: Oral 118 Output: Urine 400 Other: # Voids 1 - Labs CBC & Chem 7: 07/20/24 09:29 07/20/24 09:29
[2024-07-20 11:53] VITALS: PULSE 65; TEMP 97.9
[2024-07-20 11:54] VITALS: BP 128/89
--- NOTE | 2024-07-20 12:18 | CA ---
Transthoracic Echo Report Name: Alphonse Rodriguez Age: 74 Gender: M : 1950 Exam Date: 07/20/2024 08:24 Exam Location: [facility] Ht (in): 71 Wt (lb): 180 Ordering Physician: Ben Giang MD ([id number]) Attending/Referring Phys: Padmaja ROBBINS Licensed Sales Producer Nida Springer RDCS Procedure CPT: Indications: atrial flutter Cardiac Hx: Technical Quality: Fair Contrast 1: Total Dose (mL): Contrast 2: Total Dose (mL): MEASUREMENTS (Male / Female) Normal Values 2D ECHO LV Diastolic Diameter PLAX 4.1 cm 4.2 - 5.9 / 3.9 - 5.3 cm LV Systolic Diameter PLAX 2.7 cm IVS Diastolic Thickness 1.0 cm 0.6 - 1.0 / 0.6 - 0.9 cm LVPW Diastolic Thickness 1.0 cm 0.6 - 1.0 / 0.6 - 0.9 cm LV Relative Wall Thickness 0.5 LVOT Diameter 2.3 cm Aortic Root Diameter 3.4 cm M-MODE LV Diastolic Diameter MM 4.4 cm 4.2 - 5.9 / 3.9 - 5.3 cm LV Systolic Diameter MM 2.8 cm LV Cardiac Index MM Teich 1441.4 cm???/min???m??? IVS Diastolic Thickness MM 0.8 cm 0.6 - 1.0 / 0.6 - 0.9 cm LVPW Diastolic Thickness MM 1.2 cm 0.6 - 1.0 / 0.6 - 0.9 cm LV Relative Wall Thickness MM 0.5 0.24 - 0.42 / 0.22 - 0.42 LV Mass Index MM 75.3 g/m??? 49 - 115 / 43 - 95 g/m??? DOPPLER AV Peak Velocity 128.8 cm/s AV Peak Gradient 6.6 mmHg AV Mean Velocity 83.5 cm/s AV Mean Gradient 3.2 mmHg AV Velocity Time Integral 28.1 cm LVOT Peak Velocity 91.2 cm/s LVOT Peak Gradient 3.3 mmHg LVOT Velocity Time Integral 18.7 cm LVOT Stroke Volume 78.9 cm??? LVOT Stroke Volume Index 39.1 ml/m??? LVOT Cardiac Index 2060.0 cm???/min???m??? AV Area Cont Eq vti 2.8 cm??? AV Area Cont Eq pk 3.0 cm??? Mitral E Point Velocity 88.4 cm/s Mitral A Point Velocity 37.4 cm/s Mitral E to A Ratio 2.4 MV Deceleration Time 116.9 ms MV E' Velocity 8.9 cm/s Mitral E to MV E' Ratio 10.0 TR Peak Velocity 269.8 cm/s TR Peak Gradient 29.1 mmHg Right Atrial Pressure 5.0 mmHg Pulmonary Artery Systolic Pressu 34.1 mmHg Right Ventricular Systolic Press 34.1 mmHg PV Peak Velocity 69.7 cm/s PV Peak Gradient 1.9 mmHg FINDINGS Left Ventricle Left ventricular ejection fraction is estimated at 55-60 %. Mildly increased posterior wall thickness. Moderately increased left ventricular relative wall thickness. Left ventricular cavity size normal. No obvious regional wall motion abnormalities. Right Ventricle Normal right ventricular size and function. Right ventricular systolic pressure within normal limits. Right Atrium Normal right atrial size. Left Atrium Normal left atrial size. Mitral Valve Structurally normal mitral valve. No evidence for mitral valve prolapse. No mitral stenosis. Trace mitral regurgitation. Aortic Valve Trileaflet aortic valve. Aortic valve sclerosis. No aortic stenosis. No aortic regurgitation. Tricuspid Valve Structurally normal tricuspid valve. No tricuspid stenosis. Mild tricuspid regurgitation. Pulmonic Valve Pulmonic valve not well visualized. No pulmonic stenosis. No pulmonic regurgitation. Pericardium No pericardial effusion. Aorta Aortic annulus normal. CONCLUSIONS Left ventricular ejection fraction 55-60% Mildly increased left ventricular wall thickness RVSP 34 Trace mitral regurgitation Aortic valve sclerosis without significant aortic stenosis Mild tricuspid regurgitation Previewed by: Dr. Jorge Carroll DO (Electronically Signed) Final Date: 20 July 2024 12:17
--- NOTE | 2024-07-20 15:15 | P.DS ---
Providers Date of admission: 07/19/24 11:12 Attending physician: Duong Sinha Consults: 07/19/24 10:52 Consult Physician Urgent Consulting Provider: [facility] Consult Reason/Comments: intermittent afib with rvr, hypotension Do you want consulting provider notified?: Yes Primary care physician: Duong Sinha - Discharge Diagnosis(es) (1) Atrial fibrillation with RVR Current Visit: Yes Status: Acute (2) Hypotension Current Visit: Yes Status: Acute Hospital Course: The patient was admitted for atrial fibrillation with a rapid ventricular response. Appropriate medication treatment was adjusted and he was started on amiodarone which stabilized his rate. The patient tolerated medic vacation appropriately and after cardiology clearance will be discharged to follow-up with me in about 3-7 days. The patient is tolerating diet no voiding d ifficulties and will follow with me as stated above Patient Condition at Discharge: Stable Plan - Discharge Summary Discharge Rx Participant: No New Discharge Prescriptions: New Amiodarone [Cordarone] 200 mg PO BID #60 tab Continue Omeprazole [PriLOSEC] 20 mg PO DAILY Apixaban [Eliquis] 5 mg PO BID #30 tab Metoprolol Tartrate [Lopressor] 25 mg PO HS Atorvastatin [Lipitor] 40 mg PO HS Metoprolol Tartrate [Lopressor] 50 mg PO DAILY Discharge Medication List Omeprazole [PriLOSEC] 20 mg PO DAILY 10/17/14 [History] Apixaban [Eliquis] 5 mg PO BID #30 tab 09/01/19 [Rx] Atorvastatin [Lipitor] 40 mg PO HS 02/21/22 [History] Metoprolol Tartrate [Lopressor] 25 mg PO HS 02/21/22 [History] Metoprolol Tartrate [Lopressor] 50 mg PO DAILY 02/21/22 [History] Amiodarone [Cordarone] 200 mg PO BID #60 tab 07/20/24 [Rx] Follow up Appointment(s)/Referral(s): Duong Sinha MD [Primary Care Provider] - 1-2 days Discharge Disposition: HOME SELF-CARE
== END 2024-07-20 15:45 | disposition home or self-care (01) ==
LOC: EC 07:56 → 3SCARD 11:12
PROVIDERS: ADMIT Family Medicine; ATTEND Family Medicine
DX: I48.0 Paroxysmal atrial fibrillation (principal); I48.4 Atypical atrial flutter; I95.9 Hypotension, unspecified; N17.9 Acute kidney failure, unspecified; I25.10 Atherosclerotic heart disease of native coronary artery without angina pectoris; E78.5 Hyperlipidemia, unspecified; R05.9 Cough, unspecified; F17.200 Nicotine dependence, unspecified, uncomplicated; I10 Essential (primary) hypertension; Z79.01 Long term (current) use of anticoagulants; Z79.899 Other long term (current) drug therapy; Z11.52 Encounter for screening for COVID-19; Z11.59 Encounter for screening for other viral diseases; Z95.1 Presence of aortocoronary bypass graft
CPT/HCPCS: 36415; 71046; 71275; 74174; 80053; 81003; 83690; 83735; 83880; 84484; 85025; 85610; 85730; 87636; 93005; 93306; 94760; 96361; 96374; 99291